=== PATIENT | male | born 1995 | race Caucasian/White ===

== ENCOUNTER → 2016-10-03 | Outpatient (REF) | payer OTHER | LOC: M LAB REF 16:18 | PROVIDERS: ATTEND Physician Assistant | DX: L02.211 Cutaneous abscess of abdominal wall (principal) ==

== ENCOUNTER → 2016-11-17 | Outpatient (REF) | payer OTHER | LOC: M LAB REF 12:04 | PROVIDERS: ATTEND Physician Assistant | DX: L02.211 Cutaneous abscess of abdominal wall (principal) ==

== ENCOUNTER → 2017-02-15 | Outpatient (CLI) | payer OTHER ==
--- NOTE | 2017-02-15 17:43 | REP ---
LEFT KNEE, FIVE VIEWS: HISTORY: Injury. There is no acute fracture or dislocation. The joint spaces are normal in appearance. IMPRESSION: There is no acute fracture or dislocation. Signed by Jignesh Melendez MD 02/15/2017 05:47 P
== END ==
LOC: M WUC 17:21
PROVIDERS: ATTEND Physician Assistant
DX: S80.02XA Contusion of left knee, initial encounter (principal); X58.XXXA Exposure to other specified factors, initial encounter; Y92.89 Other specified places as the place of occurrence of the external cause; Y99.9 Unspecified external cause status

== ENCOUNTER → 2017-07-05 | Outpatient (CLI) | payer OTHER ==
--- NOTE | 2017-07-05 14:57 | REP ---
Right shoulder series: Three views. History: Pain. Findings: The right glenohumeral and acromioclavicular joints are normally aligned. Periarticular soft tissues are unremarkable. No erosive changes seen. Impression: Negative right shoulder radiographs. Signed by Siddhartha Perea MD 07/05/2017 03:18 P
== END ==
LOC: M WUC 12:29
PROVIDERS: ATTEND Physician Assistant
DX: M25.519 Pain in unspecified shoulder (principal)

== ENCOUNTER → 2017-07-18 | Outpatient (CLI) | payer OTHER ==
[~2017-07-18] MED LIST: CONRAY-43 43% 50ML VIAL (Q9960) As Ordered ONE; PROHANCE 279.3MG/ML 5ML VIAL (A9576) As Ordered ONE
--- NOTE | 2017-07-18 13:33 | REP ---
MR arthrography right shoulder: with pre and post intra-articular gadolinium enhanced saline injected imaging: History: Right shoulder dislocation. Right shoulder pain limited range of motion. Comparison radiographs July 05, 2017. Technique: The injection procedure is performed and dictated separately. Pre and post intra-articular gadolinium enhanced saline injected imaging is acquired. Imaging planes include axial, oblique coronal, oblique sagittal and ABER projection images. T1 T2-weighted scans are included with and without fat saturation. MRI findings: Preinjection MR imaging shows normal alignment of the glenohumeral and acromioclavicular joints. There is minimal hypertrophy at the AC joint. There is an area of marrow edema at the posterior aspect of the humeral head above the level of the coracoid. There is a subtle indentation of the cortex here consistent with a very subtle Hill-Sachs impaction fracture deformity. The preinjection imaging also shows a small glenohumeral joint effusion. The anterior labrum is torn and appears displaced and irregular suggesting fragmentation. There is evidence of a cartilaginous wafer shaped loose body in the axillary recess of the glenohumeral articulation. This cartilaginous loose body measures 8 mm x 2 mm x 7 mm. In addition, there is another loose body in the subcoracoid recess. This lens shaped loose body measures 7 x 4 x 10 mm. Oblique coronal images demonstrate fairly extensive swelling and increased signal intensity diffusely in the distal supraspinatus tendon consistent with tendonitis tendinosis change. No focal rotator cuff lesion is seen. No bony glenoid fracture is seen. The infraspinatus, subscapularis, and biceps tendons appear to be intact. Post injection imaging shows good filling and enhancement of the glenohumeral articulation. ABER images confirm the presence of an anterior cartilaginous labral tear. The two loose bodies described above are again seen. There is an articular cartilage linear full-thickness cleft in the anterior labral articular cartilage in addition to the labral cartilage tear described above. In addition, oblique coronal T1-weighted fat sat post injection imaging shows contrast enhancement in a partial-thickness intra substance distal supraspinatus cuff tear at the distal attachment of the supraspinatus tendon. No full-thickness tear seen. No additional finding. Impression: 1. Findings consistent with anterior glenohumeral dislocation with Hill-Sachs impaction fracture/contusion in the humeral head and a displaced fragment anterior cartilaginous labral tear. There is also a linear fissure or fracture in the articular cartilage of the glenoid labrum in addition to the labral cartilage tear. 2. There are two cartilaginous loose bodies visible. 3. 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 4. A small focal partial-thickness distal supraspinatus cuff tear is seen at the distal insertion. Signed by Siddhartha Perea MD 07/18/2017 02:11 P
--- NOTE | 2017-07-20 07:52 | REP ---
Procedure: Right shoulder arthrogram The procedure was performed under the direct supervision of Dr. Perea. History: Right shoulder pain The benefits and risks including but not limited to pain, infection, bleeding and anaphylaxis were explained to the patient and informed consent was obtained. Technique: The right glenohumeral joint space was localized using fluoroscopic guidance. The skin was prepped and draped in a sterile fashion. 1% lidocaine was used as a local anesthetic. Using fluoroscopic guidance a 22 gauge spinal needle was inserted and advanced into the joint. 0.5 ml of Conray 43 was injected to verify placement. 11 ml of a solution containing 20 ml of sterile saline and 0.15 ml of ProHance was injected into the joint. The needle was removed and the patient was taken to MRI for postprocedural imaging. Due to technical error, images were not able to be obtained The the patient tolerated the procedure well and there were no immediate complications. 3 seconds of fluoro time was utilized for this procedure. Reviewed by CHENG Joseph 07/19/2017 02:34 PSigned by Siddhartha Perea MD 07/20/2017 07:43 A
== END ==
LOC: M RADPRO 07:55
PROVIDERS: ATTEND Orthopaedic Surgery
DX: S43.004A Unspecified dislocation of right shoulder joint, initial encounter (principal); S43.431A Superior glenoid labrum lesion of right shoulder, initial encounter; M65.811 Other synovitis and tenosynovitis, right shoulder; X58.XXXA Exposure to other specified factors, initial encounter; Y93.9 Activity, unspecified; Y92.9 Unspecified place or not applicable; Y99.8 Other external cause status
CPT/HCPCS: 23350; 73223; 77002; A9576; Q9960

== ENCOUNTER 2017-08-30 07:53 | Day surgery (SDC) | payer OTHER ==
[~2017-08-30] VITALS: Ht 182.9 cm; Wt 131.5 kg
[2017-08-30] MEDS ORDERED: LIDOCAINE 1% MDV 20ML VIAL SQ PRN (08:00)
[2017-08-30] MEDS ORDERED: D5W/0.2% SODIUM CHLORIDE 1,000 ML IV ONE (08:15)
[2017-08-30] MEDS ORDERED: LR 1,000 ML IV ONE (09:15)
[2017-08-30] MEDS ORDERED: MIDAZOLAM INJ 2 MG/2 ML VIAL (J2250) As Ordered ONE ×2 (09:45→10:41)
[2017-08-30] MEDS ORDERED: fentaNYL 100 MCG/2 ML INJECTION (J3010) As Ordered ONE ×5 (09:46→14:46)
[2017-08-30] MEDS ORDERED: EPINEPHrine 1MG/ML INJ 30ML MD-VIAL As Ordered ONE (09:56)
[2017-08-30] MEDS ORDERED: fentaNYL 100 MCG/2 ML INJECTION (J3010) IV ONE (11:00)
[2017-08-30] MEDS ORDERED: MIDAZOLAM INJ 2 MG/2 ML VIAL (J2250) IV ONE (11:00)
[2017-08-30] MEDS ORDERED: MIDAZOLAM INJ 2 MG/2 ML VIAL (J2250) IV PRN (11:00)
[2017-08-30] MEDS ORDERED: ROCURONIUM BROMIDE 50 MG/5 ML VIAL As Ordered ONE (12:01)
[2017-08-30] MEDS ORDERED: PROPOFOL 200 MG/20 ML VIAL As Ordered ONE (12:01)
[2017-08-30] MEDS ORDERED: dexameTHASONE 4 MG/ML 1ML VIAL (J1100) As Ordered ONE (12:01)
[2017-08-30] MEDS ORDERED: LIDOCAINE 2% INJ 100 MG/5 ML SDV (FOR ANES.) As Ordered ONE (12:01)
[2017-08-30] MEDS ORDERED: KETOROLAC 60 MG/2 ML VIAL (J1885) As Ordered ONE (12:02)
[2017-08-30] MEDS ORDERED: METOCLOPRAMIDE INJ 10MG/2ML VIAL (J2765) As Ordered ONE (12:02)
[2017-08-30] MEDS ORDERED: ONDANSETRON 4MG/2ML VIAL (J2405) As Ordered ONE (12:02)
[2017-08-30] MEDS ORDERED: DESFLURANE 240 ML INHALANT As Ordered ONE (14:50)
[2017-08-30] MEDS ORDERED: ceFAZolin 2 GM/D5W 50 ML IV BAG (J0690 PER 500MG) As Ordered ONE (15:07)
[2017-08-30] MEDS ORDERED: LR 1,000 ML IV SCH ×3 (16:30→16:45)
[2017-08-30] MEDS ORDERED: fentaNYL 100 MCG/2 ML INJECTION (J3010) IV PRN (16:30)
[2017-08-30] MEDS ORDERED: ONDANSETRON 4MG/2ML VIAL (J2405) IV PRN (16:30)
[2017-08-30 18:30] VITALS: BP 133/78
[2017-08-31] MEDS ORDERED: ROPIvacaine 0.5% 30 ML INJECTION (J2795 PER 1MG) ONE (08:12)
--- NOTE | 2017-09-05 17:44 | RO ---
DATE OF PROCEDURE: 08/30/2017 PREPROCEDURE DIAGNOSES: 1. Right shoulder anterior instability. 2. Right shoulder loose bodies. POSTPROCEDURE DIAGNOSES: 1. Right shoulder anterior labral tear. 2. Right shoulder loose bodies with chondral damage to the glenoid. 3. Right shoulder superior labral tear. 4. Partial articular rotator cuff tear. OPERATIVE PROCEDURE: 1. Right shoulder arthroscopy with arthroscopic Bankart repair. 2. Right shoulder open subpectoral biceps tenodesis. 3. Right shoulder loose body removal. 4. Right shoulder chondroplasty of the glenoid and rotator cuff debridement. SURGEON: Albaro Steele MD ELECTRICAL ENGINEER MEP: SHANAE Gomez ANESTHESIA: General with a preoperative nerve block. IV FLUIDS: Lactated Ringers. IMPLANTS: Arthrex 3.0 mm SutureTak times one and 2.9 mm PushLock anchors times three and an Arthrex proximal biceps tenodesis button time one. INDICATIONS: The patient is a 22-year-old gentleman that suffered two instability episodes during basketball where he reported a subluxation that required reduction. Since that injury he had multiple episodes of subluxation as well as mechanical symptoms. On exam, he was noted to have positive apprehension and relocation and tests. MRI arthrogram revealed two loose bodies and a chondral defect to the glenoid near an anterior inferior labral tear. At his young age and having proven recurrent instability and loose bodies, I recommended surgical management. We discussed arthroscopic labral repair, loose body removal, chondroplasty. After a long discussion of the risks and benefits, written informed consent was obtained. DESCRIPTION OF PROCEDURE: The patient was identified in the preoperative holding area and the right shoulder signed by myself. He received a preoperative nerve block. He was then brought to the operating room and placed supine on a well-padded OR table with a beanbag. General anesthesia induced. Examination under anesthesia revealed 170 degrees of passive forward flexion, 90 degrees of external rotation with arm at his side, 100 degrees of external rotation with his arm at 90. He had grade 3 anterior load and shift, grade 1 posterior load and shift. He was then placed into the left side down lateral decubitus position where the beanbag was deflated. Due to the patient's morbid obesity we used extra seat belts and restraints to secure him to the OR table. Due to the patient's large body habitus and morbid obesity it also increased the complexity of the surgery including instrumentation not being long enough and contributing to twice the duration of normal procedure for this type of injury. The right arm was then prepped and draped in a normal sterile fashion using Chloraprep. He received appropriate IV antibiotics within one hour of incision. The right arm was sterilely placed into the Arthrex star sleeve lateral traction device with 10 pounds of traction. Prior to the incision a time-out was performed with myself and all OR staff confirming the patient's name, medical record number, date of and the correct side, site and procedure. The right shoulder was insufflated with 30 mL of lactated ringers. Spinal needle and a standard posterior inferior portal made with an #11 blade. 30 degrees arthroscope introduced into the joint atraumatically. Due to the patient's large size, the arthroscope was just long enough for visualization. A diagnostic arthroscopy revealed tearing of the anterior labrum down to the 5:30 position then extending up across the superior labrum and then back to the 10:30 position. There was a bucket handle tear within the superior labrum and the biceps labral anchor complex appeared unstable most consistent with a modified type 4 superior labral tear. The subscapularis tendon was intact. There was partial articular sided tearing of the supraspinatus and infraspinatus. No full thickness tears. The posterior labrum had a linear crack at the junction of the cartilage and labrum. The humeral head was noted to be sitting anterior and inferior. I then established a low anterior inferior portal using a spinal needle to give appropriate trajectory to drill a low anchor on the glenoid. An accessory anterior superior portal was also created through the rotator interval just anterior to the biceps. We had to use extra long cannulas due to the patient's size. This created difficulty visualizing through the anterior superior portal as the arthroscope was not long enough. On probing of the anterior superior labrum it was deem this to be a modified type 4 superior labral tear with an unstable anchor. There was a bucket handle component and I felt that performing a superior labral repair would lead to a compromised repair at higher risk for retear and also increase the risk of stiffness. I then spoke to the parents to explain the intraoperative findings and obtained written informed consent from both parents to proceed with an open subpectoral biceps tenodesis rather than a superior labral repair. I then performed a tenotomy at the long head of the biceps of the superior labral junction with a meniscal punch. I then proceeded with an open subpectoral biceps tenodesis. A 3 cm incision made just lateral to the axilla centered over the lateral port of the pectoralis major tendon. Dissection with Metzenbaum scissors through the bicipital fascia and then blunt finger dissection down to the anterior humeral cortex. The long head of the biceps tendon was identified and the tendon was easily retrieved with a right angle clamp. Arthrex proximal tenodesis kit was opened and a running locking web stitch was placed with the FiberLoop. Excess tendon was trimmed and discarded. The sutures were loaded through the tenodesis button. I then marked the proposed drill site with cautery 1 cm proximal to the lower edge of the pectoralis major tendon within the bicipital groove and held the sutures to that michaela and that was felt to restore normal tension. Unicortical drill hole made with a [place] Tip drill bit. Irrigation to remove bony debris. The button then was placed through the drill hole on its in classroom tutor and then removed and the sutures were toggled which flipped the button. Unfortunately one of these suture limbs broke so there was one limb of suture through the button, but by pulling traction on that the tendon was reduced nicely to the anterior humeral cortex. I placed a FiberLink suture through the tendon and tied that to the torn loose suture so that the not lose intramedullary control of the button. By pulling on the intact end of the suture this nicely reduced the long head of the biceps to the humerus and then tied knots by hand with the FiberLink which locked the construct in place. Excess suture was trimmed and discarded. The biceps was noted to be under appropriate but not excessive tension. That incision was then extensively irrigated with normal saline, closed with #2-0 Vicryl and a running nylon. Attention was then turned back to the anterior labral tear. Two loose bodies were encountered and they were in the anterior pouch and they were removed with a grasper. The largest was 1 x 1 cm. The chondral defect in the anterior inferior glenoid was smaller than expected and would be covered by a standard anterior labral repair without having to excessively advance the labrum up onto the glenoid face. I did perform a chondroplasty with the shaver to remove any loose flaps of cartilage and then use the shaver on the bur setting to gently decorticate the anterior glenoid neck to create a bony bleeding surface. The drill sleeve for Arthrex SutureTak was placed at the 5-o'clock position and I then drilled and placed a 3.0 SutureTak. Due to the patient's body habitus, it was difficult using the SutureLasso to grasp the anterior band of the inferior glenohumeral ligament. Therefore I used the Arthrex shoulder Scorpion to pass to limbs of FiberWire suture through that 5:30 labral tissue and capsule tissue. Two limbs were passed in a horizontal mattress fashion and then tied arthroscopic knots using half hitches. The excess suture limb was unloaded from the anchor and discarded. This nicely advanced the anterior band of the inferior glenohumeral ligament up to that 5-o'clock anchor. I then used the SutureLasso to grasp capsule and labrum and performed an inferior to superior shift in the capsule. I placed a total of three PushLock anchors, one at 4-o'clock, then 3-o'clock and finally 2-o'clock position on the glenoid using labral tape. This nicely repaired the anterior labrum. The humeral head was then noted when viewed from the superior portal to be centrally located on the glenoid. I did debride the superior labrum with a shaver. I also debrided the partial rotator cuff tear with the shaver. That partial cuff tear was estimated to be one-third or less as the probe tip was just barely buried. The shoulder was then irrigated and drained. Portals closed with nylon suture. Bulky sterile bandage applied and the patient was placed carefully into a ARC 2.0 pillow. COUNTS: All counts correct times two. DISPOSITION: The patient was extubated and transferred to the PACU in stable condition.
== END 2017-08-30 18:40 | disposition home or self-care (01) ==
LOC: M SDC 07:53
PROVIDERS: ATTEND Orthopaedic Surgery
DX: S43.491A Other sprain of right shoulder joint, initial encounter (principal); M24.011 Loose body in right shoulder; M75.111 Incomplete rotator cuff tear or rupture of right shoulder, not specified as traumatic; K21.9 Gastro-esophageal reflux disease without esophagitis; J45.909 Unspecified asthma, uncomplicated; L02.92 Furuncle, unspecified; Z88.1 Allergy status to other antibiotic agents; Z72.0 Tobacco use; X50.0XXA Overexertion from strenuous movement or load, initial encounter; Y93.67 Activity, basketball; Y92.89 Other specified places as the place of occurrence of the external cause; Y99.8 Other external cause status
CPT/HCPCS: 23430; 29806; 29822; 88304; C1713; J0690; J1100; J1885; J2250; J2405; J2765; J3010

== ENCOUNTER → 2018-02-11 | Outpatient (CLI) | payer OTHER | LOC: M WUC 15:26 | DX: S93.402A Sprain of unspecified ligament of left ankle, initial encounter (principal); X58.XXXA Exposure to other specified factors, initial encounter; Y92.89 Other specified places as the place of occurrence of the external cause | CPT/HCPCS: 73610 ==

== ENCOUNTER → 2018-06-24 | Outpatient (CLI) | payer OTHER | LOC: M WUC 15:47 | DX: M79.641 Pain in right hand (principal) | CPT/HCPCS: 73130 ==

== ENCOUNTER → 2019-09-26 | Outpatient (CLI) | payer OTHER ==
[2019-09-26 21:01] LABS: FREE THYROXINE INDEX 2.4 % (1.4-3.8); THYROID STIMULATING HORMONE 2.47 uIU/ML (0.358-3.740); THYROXINE (T4) 7.6 UG/DL (4.5-12.0)
== END ==
LOC: M WUC 18:31
PROVIDERS: ATTEND Physician Assistant Medical
DX: R94.6 Abnormal results of thyroid function studies (principal)

== ENCOUNTER → 2020-08-04 | Outpatient (CLI) | payer OTHER ==
[2020-08-04 11:28] LABS: ALT/SGPT 44 U/L (12-78); BILIRUBIN,TOTAL 0.8 MG/DL (0.2-1.0); BLOOD UREA NITROGEN 11 MG/DL (7-18); CALCIUM LEVEL 9.2 MG/DL (8.5-10.1); CARBON DIOXIDE LEVEL 31 MEQ/L (21-32); CHLORIDE LEVEL 107 MEQ/L (98-107); CHOLESTEROL LEVEL 235 MG/DL (<200); CHOLESTEROL RISK RATIO 6.351 (<5); FREE T4 0.96 NG/DL (0.76-1.46); GLOMERULAR FILTRATION RATE > 60.0 (>60); GLUCOSE, FASTING 84 MG/DL (70-100); HDL CHOLESTEROL 37 MG/DL (>40); LDL CHOLESTEROL 168 MG/DL (<100); NON-HDL-C 198 MG/DL; POTASSIUM SERUM 4.8 MEQ/L (3.5-5.1); SODIUM LEVEL 140 MEQ/L (136-145); TOTAL PROTEIN 7.6 GM/DL (6.4-8.2); TRIGLYCERIDES LEVEL 149 MG/DL (<150)
[2020-08-04 11:31] LABS: CORTISOL AM 9.9 UG/DL (4.3-22.4)
== END ==
LOC: M WUC 08:32
PROVIDERS: ATTEND Nurse Practitioner Family
DX: E66.01 Morbid (severe) obesity due to excess calories (principal)

== ENCOUNTER 2020-10-25 10:22 | Emergency (ER) | payer OTHER ==
[~2020-10-25] VITALS: Ht 182.9 cm; Wt 139.9 kg
[2020-10-25] MEDS ORDERED: FLUORESCEIN OPHTH 1 MG STRIP OD ONE (11:15)
[2020-10-25] MEDS ORDERED: PROPARACAINE 0.5% OPHTH SOL 15ML OD ONE (11:15)
[2020-10-25] MEDS ORDERED: OCUF0.25 OP (12:43)
[2020-10-25] MEDS ORDERED: BESI0.6S OP (12:46)
[2020-10-25 12:53] VITALS: BP 145/89
== END 2020-10-25 12:55 | disposition home or self-care (01) ==
LOC: M ED 10:22
DX: S05.11XA Contusion of eyeball and orbital tissues, right eye, initial encounter (principal); W22.8XXA Striking against or struck by other objects, initial encounter; Y92.018 Other place in single-family (private) house as the place of occurrence of the external cause; Y93.B9 Activity, other involving muscle strengthening exercises; Z88.0 Allergy status to penicillin; Z88.8 Allergy status to other drugs, medicaments and biological substances

== ENCOUNTER 2020-10-31 18:24 | Emergency (ER) | payer OTHER ==
[~2020-10-31] VITALS: Ht 195.6 cm; Wt 144.6 kg
[~2020-10-31 18:24] MED LIST changes: +BESI0.6S OP; -CONRAY-43 43% 50ML VIAL (Q9960) As Ordered ONE; +OCUF0.25 OP; -PROHANCE 279.3MG/ML 5ML VIAL (A9576) As Ordered ONE
--- OUTSIDE RECORDS SUMMARY | 2020-10-31 18:30 | CCD | Continuity of Care Document ---
Author Author Anderson POOL TECHNICAL EDITOR Organization Unknown Address [address] [address] Phone [phone] Care Team Providers Care Machine Setup Operator Name Role Phone Karen Campbell PA-C AUTM Problems Description No Information Available Social History Type Date Description Comments Sex Unknown Tobacco Use Start: Unknown Never Smoked Cigarettes Smoking Status Reviewed: 07/28/20 Never Smoked Cigarettes ETOH Use Occasionally consumes alcohol Allergies, Adverse Reactions, Alerts Active Allergies Reaction Severity Comments Date Augmentin 07/27/2020 Medications Active Medications SIG Qnty Indications Ordering Provide r Date Conceptionxr [facility]roductive[facility] Formula Tablets 1 po qd Unknown History Medications No Active Medications Unknown - 07/27/2020 Immunizations Description No Information Available Vital Signs Date Vital Result Comment 07/28/2020 9:56am BP Systolic 142 mmHg BP Diastolic 84 mmHg Heart Rate 69 /min Body Temperature 96.8 F Height 71.0 inches 5'11" Weight 316.00 lb BMI (Body Mass Index) 44.1 kg/m2 O2 % BldC Oximetry 97 % Results Test Acquired Date Facility Test Result H/L Range Note Lipid Panel 08/04/2020 [facility] [address] [place] [address] (315)- - Triglycerides Level 149 mg/dL Normal <150 Cholesterol Level 235 mg/dL High <200 HDL Cholesterol 37 mg/dL Low >40 LDL Cholesterol 168 mg/dL High <100 Non-HDL-C 198 mg/dL Normal Cholesterol Risk Ratio 6.351 High <5 Comprehensive Metabolic Profil 08/04/2020 [facility] [address] [place] [address] (315)- - Glucose, Fasting 84 mg/dL Normal 70-100 Blood Urea Nitrogen 11 mg/dL Normal 7-18 Creatinine For GFR 1.00 mg/dL Normal 0.70-1.30 Glomerular Filtration Rate > 60.0 Normal >60 1 Sodium Level 140 mEq/L Normal 136-145 Potassium Serum 4.8 mEq/L Normal 3.5-5.1 Chloride Level 107 mEq/L Normal 98-107 Carbon Dioxide Level 31 mEq/L Normal 21-32 Anion Gap 2 mEq/L Low 8-16 Calcium Level 9.2 mg/dL Normal 8.5-10.1 Ast/Sgot 20 U/L Normal 7-37 Alt/SGPT 44 U/L Normal 12-78 Alkaline Phosphatase 63 U/L Normal 45-117 Bilirubin,Total 0.8 mg/dL Normal 0.2-1.0 Total Protein 7.6 GM/DL Normal 6.4-8.2 Albumin 4.0 GM/DL Normal 3.2-5.2 Albumin/Globulin Ratio 1.1 Normal FT4&TSH Panel 08/04/2020 [facility] [address] [place] [address] (315)- - Thyroid Stimulating Hormone 1.810 uIU/ML Normal 0.358- 3.740 Free T4 0.96 ng/dL Normal 0.76-1.46 Laboratory test finding 08/04/2020 [facility] [address] [place] [address] (315)- - Cortisol Am 9.9 g/dL Normal 4.3-22.4 1 Units are mL/min/1.73 m2 Chronic Kidney Disease Staging per NKF: Stage I & II GFR >=60 Normal to Mildly Decreased Stage III GFR 30-59 Moderately Decreased Stage IV GFR 15-29 Severely Decreased Stage V GFR <15 Very Little GFR Left ESRD GFR <15 on QUARTER SUPERVISOR Procedures Description No Information Available Medical Devices Description No Information Available Encounters Type Date Location Provider Dx Diagnosis Office Visit 07/28/2020 10:00a DR. Natalya Pool NP E6 6.01 Morbid (severe) obesity due to excess calories Assessments Date Code Description Provider 07/28/2020 E66.01 Morbid (severe) obesity due to e xcess calories Vita Pool NP Plan of Treatment Future Appointment(s):* 08/18/2020 8:30 am - Vita Pool NP at DR. Natalya Finnegan 07/28/2020 - Vita Pool NP* E66.01 Morbid (severe) obesity due to excess calories* Comments:* Pt here for evaluation of obesity. Pt states has always been big. Was seen by an pantograph transferrer at age 6yo. Had been on diet and exercise program through [facility]. Lowest adult weight 265lbs in 2017Has been on Keto diet for last week. Usually exercises 6 times per week. FH of Diabetes Has never tried any medications for weight loss. Labs done 09/26/2019- TSH= 2.470, T4= 7.6No recent labs. Last lipid panel 2010Will check TSH, FT4, Lipid panel, CMP, Cortisol - if normal consider Phentermine or Saxenda. Pt agrees with planRTO 3 weeks to discuss * Follow up:* RTO 3 weeks. ARIELLE Functional Status Description No Information Available Mental Status Description No Information Available Referrals Description No Information Available
--- OUTSIDE RECORDS SUMMARY | 2020-10-31 18:30 | CCD | Continuity of Care Document ---
Author Author Anderson POOL HEEL SCOURER Organization Unknown Address [address] [place] [address] Phone [phone] Care Team Providers [facility] Name Role Phone Karen Campbell PA-C AUTM Problems Description No Information Available Social History Type Date Description Comments Sex Unknown Tobacco Use Start: Unknown Never Smoked Cigarettes Smoking Status Reviewed: 10/19/20 Never Smoked Cigarettes ETOH Use Occasionally consumes alcohol Allergies, Adverse Reactions, Alerts Active Allergies Reaction Severity Comments Date Augmentin 07/27/2020 Medications Active Medications SIG Qnty Indications Ordering Provide r Date Abouttime [place] 31G X 5/16" 31G X 8 mm Misc use as directed once daily with saxenda 100units J magdaleno Pool NP 08/31/2020 Saxenda 18mg/3ML Solution Pen-Inje ct 3mg sq daily 15ml E66.01 Vita Pool NP 08/18/2020 Conceptionxr [facility]roductivehealth Formula Tablets 1 po bid Unknown History Medications No Active Medications Unknown - 07/27/2020 Immunizations Description No Information Available Vital Signs Date Vital Result Comment 10/19/2020 8:32am BP Systolic 128 mmHg BP Diastolic 82 mmHg Heart Rate 58 /min Body Temperature 97.1 F Height 71.0 inches 5'11" Weight 311.25 lb BMI (Body Mass Index) 43.4 kg/m2 O2 % BldC Oximetry 96 % 08/18/2020 8:22am BP Systolic 136 mmHg BP Diastolic 80 mmHg Heart Rate 75 /min Body Temperature 96.2 F Height 71.0 inches 5'11" Weight 317.12 lb BMI (Body Mass Index) 44.2 kg/m2 O2 % BldC Oximetry 96 % Results Test Acquired Date Facility Test Result H/L Range Note Lipid Panel 08/04/2020 [facility] n[facility] [address] [place] [address] (315)- - Triglycerides Level 149 mg/dL Normal <150 Cholesterol Level 235 mg/dL High <200 HDL Cholesterol 37 mg/dL Low >40 LDL Cholesterol 168 mg/dL High <100 Non-HDL-C 198 mg/dL Normal Cholesterol Risk Ratio 6.351 High <5 Comprehensive Metabolic Profil 08/04/2020 [facility] [address] [place] [address] (315)- - Glucose, Fasting 84 mg/dL Normal [...] Albumin/Globulin Ratio 1.1 Normal FT4&TSH Panel 08/04/2020 [facility] [address] [place] [address] (315)- - Thyroid Stimulating Hormone 1.810 uIU/ML Normal 0.358- 3.740 Free T4 0.96 ng/dL Normal 0.76-1.46 Laboratory test finding 08/04/2020 [facility] [address] [place] [address] (315)- - Cortisol Am 9.9 g/dL Normal 4.3-22.4 1 Units are mL/min/1.73 m2 Chronic Kidney Disease Staging per NKF: Stage I & II GFR >=60 Normal to Mildly Decreased Stage III GFR 30-59 Moderately Decreased Stage IV GFR 15-29 Severely Decreased Stage V GFR <15 Very Little GFR Left ESRD GFR <15 on SUTURE WINDER HAND Procedures Description No Information Available Medical Devices Description No Information Available Encounters Type Date Location Provider Dx Diagnosis Office Visit 10/19/2020 8:30a DR. Natalya Pool, VENESSA E6 6.01 Morbid (severe) obesity due to excess calories E78.2 Mixed hyperlipidemia Office Visit 08/18/2020 8:30a DR. Natalya Pool, VENESSA E6 6.01 Morbid (severe) obesity due to excess calories E78.2 Mixed hyperlipidemia Office Visit 07/28/2020 10:00a DR. Natalya Pool, VENESSA E6 6.01 Morbid (severe) obesity due to excess calories Assessments Date Code Description Provider 10/19/2020 E66.01 Morbid (severe) obesity due to e xcess calories Vita Pool, VENESSA 10/19/2020 E78.2 Mixed hyperlipidemia Vita varela, HEEL SCOURER 08/18/2020 E66.01 Morbid (severe) obesity due to e xcess calories Vita Pool, VENESSA 08/18/2020 E78.2 Mixed hyperlipidemia Vita Romero C avery, HEEL SCOURER 07/28/2020 E66.01 Morbid (severe) obesity due to e xcess calories Vita Pool NP Plan of Treatment 10/19/2020 - Vita Pool NP* E66.01 Morbid (severe) obesity due to excess calories* Comments:* Pt here for evaluation of obesity. Pt states has always been big. Was seen by an configuration management administrator at age 6yo. Had been on diet and exercise program through [facility]. Lowest adult weight 265lbs in 2017Has been on Keto diet Usually exercises 6 times per week. FH of Diabetes Has never tried any medications for weight loss. Labs done 09/26/2019- TSH= 2.470, T4= 7.6No recent labs. Last lipid panel 2011Labs done 08/04/2020- TSH=1.81, FT4=0.96, chol= 235, Trig= 149, HDL= 37, LDL= 168, Cortisol= 9.9, Scr= 1.00, GFR= >60, AST/ALT= 20/44Saxenda discussed- pt would benefit from weight loss( BMI= 44) FH Diabetes, impaired glucose tolerance. . Has lost 6 lbs since last visit. Pt's goal is 285lbs. Has started to workup with weights more. Currently on Saxenda 3mg qdAt first was nauseated, but now tolerating. Will continue same. * Follow up:* RTO 3 months ARIELLE * E78.2 Mixed hyperlipidemia* New Labs:* Lipid Panel, Scheduled: 01/11/21 * Comprehensive Metabolic Profil, Scheduled: 01/11/21 * Comments:* 08/04/2020- chol= 235, Trig= 149, HDL= 37, LDL= 168 Will recheck Lipid panel and CMP prior to next appt Functional Status Description No Information Available Mental Status Description No Information Available Referrals Description No Information Available
--- OUTSIDE RECORDS SUMMARY | 2020-10-31 18:30 | CCD ---
Author Author [facility] Organization [facility] Address Unknown Phone Unavailable Care Team Providers Care Bar Staff Name Role Phone Adrian Stark Karen PA-C Unavailable Unavailabl e Petrancosta, Stark Karen PA-C Unavailable Unavailabl e Petrancosta, Stark Karen PA-C Unavailable Unavailabl e Petrancosta, Stark Karen PA-C Unavailable Unavailabl e Petrancosta, Stark Karen PA-C Unavailable Unavailabl e Petrancosta, Stark Karen PA-C Unavailable Unavailabl e Petrancosta, Stark Karen PA-C Unavailable Unavailabl e Petrancosta, Stark Karen PA-C Unavailable Unavailabl e Petrancosta, Stark Karen PA-C Unavailable Unavailabl e Petrancosta, Stark Karen PA-C Unavailable Unavailabl e Petrancosta, Stark Karen PA-C Unavailable Unavailabl e Petrancosta, Stark Karen PA-C Unavailable Unavailabl e Petrancosta, Stark Karen PA-C Unavailable Unavailabl e Petrancosta, Stark Karen PA-C Unavailable Unavailabl e Petrancosta, Stark Karen PA-C Unavailable Unavailabl e Petrancosta, Stark Karen PA-C Unavailable Unavailabl e Petrancosta, Stark Karen PA-C Unavailable Unavailabl e Petrancosta, Stark Karen PA-C Unavailable Unavailabl e Petrancosta, Stark Karen PA-C Unavailable Unavailabl e Petrancosta, Stark Karen PA-C Unavailable Unavailabl e Petrancosta, Stark Karen PA-C Unavailable Unavailabl e Petrancosta, Stark Karen PA-C Unavailable Unavailabl e Petrancosta, Stark Karen PA-C Unavailable Unavailabl e COOK, B ROBBIE WORLD TRAVEL COUNSELOR Unavailable Unavailable COOK, B ROBBIE WORLD TRAVEL COUNSELOR Unavailable Unavailable COOK, B ROBBIE WORLD TRAVEL COUNSELOR Unavailable Unavailable COOK, B ROBBIE WORLD TRAVEL COUNSELOR Unavailable Unavailable COOK, B ROBBIE WORLD TRAVEL COUNSELOR Unavailable Unavailable COOK, B ROBBIE WORLD TRAVEL COUNSELOR Unavailable Unavailable COOK, B ROBBIE WORLD TRAVEL COUNSELOR Unavailable Unavailable COOK, B ROBBIE WORLD TRAVEL COUNSELOR Unavailable Unavailable COOK, B ROBBIE WORLD TRAVEL COUNSELOR Unavailable Unavailable COOK, B ROBBIE WORLD TRAVEL COUNSELOR Unavailable Unavailable COOK, B ROBBIE WORLD TRAVEL COUNSELOR Unavailable Unavailable COOK, B ROBBIE WORLD TRAVEL COUNSELOR Unavailable Unavailable COOK, B ROBBIE WORLD TRAVEL COUNSELOR Unavailable Unavailable COOK, B ROBBIE WORLD TRAVEL COUNSELOR Unavailable Unavailable COOK, B ROBBIE WORLD TRAVEL COUNSELOR Unavailable Unavailable COOK, B ROBBIE WORLD TRAVEL COUNSELOR Unavailable Unavailable COOK, B ROBBIE WORLD TRAVEL COUNSELOR Unavailable Unavailable COOK, B ROBBIE WORLD TRAVEL COUNSELOR Unavailable Unavailable COOK, B ROBBIE WORLD TRAVEL COUNSELOR Unavailable Unavailable COOK, B ROBBIE WORLD TRAVEL COUNSELOR Unavailable Unavailable COOK, B ROBBIE WORLD TRAVEL COUNSELOR Unavailable Unavailable COOK, B ROBBIE WORLD TRAVEL COUNSELOR Unavailable Unavailable COOK, B ROBBIE WORLD TRAVEL COUNSELOR Unavailable Unavailable COOK, B ROBBIE WORLD TRAVEL COUNSELOR Unavailable Unavailable COOK, B ROBBIE WORLD TRAVEL COUNSELOR Unavailable Unavailable COOK, B ROBBIE WORLD TRAVEL COUNSELOR Unavailable Unavailable COOK, B ROBBIE WORLD TRAVEL COUNSELOR Unavailable Unavailable COOK, B ROBBIE WORLD TRAVEL COUNSELOR Unavailable Unavailable COOK, B ROBBIE WORLD TRAVEL COUNSELOR Unavailable Unavailable COOK, B ROBBIE WORLD TRAVEL COUNSELOR Unavailable Unavailable COOK, B ROBBIE WORLD TRAVEL COUNSELOR Unavailable Unavailable COOK, B ROBBIE WORLD TRAVEL COUNSELOR Unavailable Unavailable COOK, B ROBBIE WORLD TRAVEL COUNSELOR Unavailable Unavailable COOK, B ORBBIE WORLD TRAVEL COUNSELOR Unavailable Unavailable COOK, B ROBBIE WORLD TRAVEL COUNSELOR Unavailable Unavailable COOK, B ROBBIE WORLD TRAVEL COUNSELOR Unavailable Unavailable COOK, B ROBBIE WORLD TRAVEL COUNSELOR Unavailable Unavailable COOK, B ROBBIE WORLD TRAVEL COUNSELOR Unavailable Unavailable COOK, B ROBBIE WORLD TRAVEL COUNSELOR Unavailable Unavailable COOK, B ROBBIE WORLD TRAVEL COUNSELOR Unavailable Unavailable COOK, B ROBBIE WORLD TRAVEL COUNSELOR Unavailable Unavailable COOK, B ROBBIE WORLD TRAVEL COUNSELOR Unavailable Unavailable COOK, B ROBBIE WORLD TRAVEL COUNSELOR Unavailable Unavailable COOK, B ROBBIE WORLD TRAVEL COUNSELOR Unavailable Unavailable COOK, B ROBBIE WORLD TRAVEL COUNSELOR Unavailable Unavailable COOK, B ROBBIE WORLD TRAVEL COUNSELOR Unavailable Unavailable COOK, B ROBBIE WORLD TRAVEL COUNSELOR Unavailable Unavailable COOK, B ROBBIE WORLD TRAVEL COUNSELOR Unavailable Unavailable COOK, B ROBBIE WORLD TRAVEL COUNSELOR Unavailable Unavailable COOK, B ROBBIE WORLD TRAVEL COUNSELOR Unavailable Unavailable COOK, B ROBBIE WORLD TRAVEL COUNSELOR Unavailable Unavailable COOK, B ROBBIE WORLD TRAVEL COUNSELOR Unavailable Unavailable COOK, B ROBBIE WORLD TRAVEL COUNSELOR Unavailable Unavailable COOK, B ROBBIE WORLD TRAVEL COUNSELOR Unavailable Unavailable COOK, B ROBBIE WORLD TRAVEL COUNSELOR Unavailable Unavailable COOK, B ROBBIE WORLD TRAVEL COUNSELOR Unavailable Unavailable COOK, B ROBBIE WORLD TRAVEL COUNSELOR Unavailable Unavailable COOK, B ROBBIE WORLD TRAVEL COUNSELOR Unavailable Unavailable COOK, B ROBBIE WORLD TRAVEL COUNSELOR Unavailable Unavailable COOK, B ROBBIE WORLD TRAVEL COUNSELOR Unavailable Unavailable COOK, B ROBBIE WORLD TRAVEL COUNSELOR Unavailable Unavailable COOK, B ROBBIE WORLD TRAVEL COUNSELOR Unavailable Unavailable COOK, B ROBBIE WORLD TRAVEL COUNSELOR Unavailable Unavailable COOK, B ROBBIE WORLD TRAVEL COUNSELOR Unavailable Unavailable Rosalind BROOKSEW DO Unavailable [phone] Rosalind BROOKS BG DO Unavailable [phone] Rosalind BROOKS BG DO Unavailable [phone] Rosalind BROOKS BG DO Unavailable [phone] Rosalind BROOKS BG DO Unavailable [phone] Rosalind BROOKS BG DO Unavailable [phone] Rosalind BROOKS BG DO Unavailable [phone] Rosalind BROOKS BG DO Unavailable [phone] Rosalind BROOKS BG DO Unavailable [phone] Rosalind BROOKS BG DO Unavailable [phone] Rosalind BROOKS BG DO Unavailable [phone] Rosalind BROOKS BG DO Unavailable [phone] Rosalind BROOKS BG DO Unavailable [phone] Rosalind BROOKS BG DO Unavailable [phone] ADDIE, A. BG DO Unavailable [phone] Rosalind BROOKS DO Unavailable [phone] Rosalind BROOKS DO Unavailable [phone] Rosalind BROOKS DO Unavailable [phone] Rosalind BROOKS DO Unavailable [phone] Rosalind BROOKS DO Unavailable [phone] Rosalind BROOKS DO Unavailable [phone] Re-disclosure Warning The records that you are about to access may contain information from federally-assisted alcohol or drug abuse programs. If such information is present, then the following federally mandated warning applies: This information has been disclosed to you from records protected by federal confidentiality rules (42 CFR part 2). The federal rules prohibit you from making any further disclosure of this information unless further disclosure is expressly permitted by the written consent of the person to whom it pertains or as otherwise permitted by 42 CFR part 2. A general authorization for the release of medical or other information is NOT sufficient for this purpose. The Federal rules restrict any use of the information to criminally investigate or prosecute any alcohol or drug abuse patient.The records that you are about to access may contain highly sensitive health information, the redisclosure of which is protected by Article 27-F of the [facility] Public Health law. If you continue you may have access to information: Regarding HIV / AIDS; Provided by facilities licensed or operated by the [facility] Office of Mental Health; or Provided by the [facility] Office for People With Developmental Disabilities. If such information is present, then the following [facility] mandated warning applies: This information has been disclosed to you from confidential records which are protected by state law. State law prohibits you from making any further disclosure of this information without the specific written consent of the person to whom it pertains, or as otherwise permitted by law. Any unauthorized further disclosure in violation of state law may result in a fine or senior care sentence or both. A general authorization for the release of medical or other information is NOT sufficient authorization for further disc losure. Allergies and Adverse Reactions Type Description Substance Reaction Status Data Source(s ) Allergy to substance No Known Allergies No known allergies (situation ) NONA (Darien Love MD [facility]) Family History Family Member Name Family Member Gender Family Member Status Date o f Status Description Data Source(s) Unknown Male Problem [facility] ([facility] ) Unknown Male Problem [facility]) Encounters Encounter Providers Location Date Indications Data Source(s ) Outpatient<td ID="encounterTypeDescripti onID0">EMERGENCY RM [facility]</td><td>Bg Brooks DO</td><td>Darien Mcbride MD [facility]</td><td>10/30/2020</td><td>7:51AM</td><td>9:02AM</td><td><content ID="encounterDiagnosisID0-0">Iritis</content>, <content ID="encounterDiagnosisID0-1">Blepharitis Squamous</content>, <content ID="encounterDiagnosisID0-2">Meibomian Gland Dysfunction of Eyelid</content></td> Attender: BG Arnold MD [facility] 10/30/2020 07:51:00 AM EST - 10/30/2020 09:02:00 AM EST Meibomian Gland Dysfunction of EyelidBlepharitis SquamousIritis NONA (Dairen Love MD [facility]) Meibomian Gland Dysfunction of Eyelid Blepharitis Squamous Iritis OFFICE OUTPATIENT VISIT 15 MINUTES Attender: ROBBIE MAYA NP Phys ical Therapy 10/19/2020 07:30:00 AM EST [facility] ([facility] ) Outpatient Attender: ROBBIE MAYA NP Physical Therapy 08/18/2020 0 7:30:00 AM EST [facility] ([facility] ) Outpatient Attender: ROBBIE MAYA NP Physical Therapy 07/28/2020 0 9:00:00 AM EST [facility] ([facility] ) Outpatient Attender: Karen Campbell PA-C Main Office 09/19/2019 09:15:00 AM EST [facility] ([facility] Medications Medication Brand Name Start Date Product Form Dose Route Admi nistrative Instructions Pharmacy Instructions Status Indications Reaction Description Data Source(s) 3 ML liraglutide 6 MG/ML Pen Injector Anastasia kaylutide -Weight Management 18 MG/3ML Subcutaneous Solution Pen-injector Liraglutide -Weight Management 18 MG/3ML Subcutaneous Solution Pen-injector 10/30/2020 12:00:00 AM EST active 3 ML liraglutide 6 MG/ML Pen Injector FIFI BAKER (Darien Love MD [facility]) Ofloxacin 3 MG/ML Ophthalmic Solution Ofloxacin 0.3% O phthalmic Solution Ofloxacin 0.3% Ophthalmic Solution 10/30/2020 12:00:00 AM EST active ofloxacin 3 MG/ML Ophthalmic Solution FIFI BAKER (Darien Love MD [facility]) Inveltys 1% Ophthalmic Suspension Inveltys 1% Ophthalmic Corie pension 10/30/2020 12:00:00 AM EST active loteprednol etabonate 10 MG/ML Ophthalmic Suspension [Inveltys] NONA (Darien Love MD [facility]) 0.3 % 10/25/2020 12:00:00 AM EST drops 5 INSTILL 2 DROPS IN THE AFFECTED EYE FOUR TIMES A DAY INSTILL 2 DROPS IN THE AFFECTED EYE FOUR TIMES A DAY S OLD: 10/25/2020 [facility] 3 mg/0.5 mL (18 mg/3 mL) 10/19/2020 12:00:00 AM EST pen inje ctor 15 INJECT 3MG UNDER THE SKIN ONCE DAILY MAXIMUM DAILY DOSE = 3MG INJECT 3MG UNDER THE SKIN ONCE DAILY MAXIMUM DAILY DOSE = 3MG SOLD: 10/20/2020 [facility] Abouttime Pen [place] 31G X 5/16" 08/31/2020 12:00:00 AM EST active [facility] ([facility]) 31 gauge x 5/16" 08/31/2020 12:00:00 AM EST needle 90 USE DAILY WITH SAXENDA USE DAILY WITH SAXENDA SOLD: 09/07/2020 [facility] 3 mg/0.5 mL (18 mg/3 mL) 08/19/2020 12:00:00 AM EST pen inje ctor 15 INJECT 3MG UNDER THE SKIN DAILY MAXIMUM DAILY DOSE = 3MG INJECT 3MG UNDER THE SKIN DAILY MAXIMUM DAILY DOSE = 3MG SOLD: 08/26/2020 [facility] 3 ML liraglutide 6 MG/ML Pen Injector [Saxenda] Saxenda 08/18/2020 12:00:00 AM EST SUBCUTANEOUS active MEDE NT ([facility]) No Active Medications 07/27/2020 12:00:00 AM EST completed [facility] ([facility]) 300 mg 10/22/2019 12:00:00 AM EST capsule 20 TAKE ONE CAPSULE BY MOUTH EVERY 12 HOURS FOR 10 DAYS TAKE ONE CAPSULE BY MOUTH EVERY 12 HOURS FOR 10 DAYS S OLD: 10/22/2019 [facility] Insurance Providers Payer name Policy type / Coverage type Policy ID Covered libertarian ID Covered libertarian's relationship to kenny Policy Kenny Plan Information [facility] [id number] [place] [id number] Employers Insurance of Noti Other 0 Self 0 SELF PAY ONLY SP [facility] [id number] FA2 [id number] [employer] (HMO) [id number] Family Dependent [id number] [employer] (HMO) [id number] Family Dependent [id number] [employer] (HMO) [id number] Family Dependent [id number] [employer] (pr) Medigap Part B [id number] Family Dependent [id number] Umr (pr) Commercial [id number] Family Dependent [id number] UMR O [id number] C [id number] [employer] (HMO) [id number] Family Dependent [id number] [employer] (pr) Medigap Part B [id number] Family Dependent [id number] Pupil Benefits (pr) Commercial [id number] Family Dependent [id number] [employer] (pr) Commercial [id number] Family Dependent 8 [id number] [employer] Commercial [id number] Family Dependent [id number] [employer] [id number] FA2 [id number] Pupil Benefits (pr) Commercial [id number] Self [id number] [employer] (pr) Commercial [id number] Family Dependent 8 [id number] [employer] [id number] FA2 [id number] [employer] PPO O [id number] S [id number] [employer] [id number] FA2 [id number] [employer] Commercial Family Dependent [id number] Problems, Conditions, and Diagnoses Code Display Name Description Problem Type Effective Dates Data Source(s) 373.02 Blepharitis Squamous Blepharitis Squamous Problem 10/30/2020 12:00:00 AM EST NONA (Darien Love MD [facility]) 364.01 Iritis Iritis Problem 10/30/2020 12:00:00 AM ES T NONA (Darien Love MD [facility]) [id number] Meibomian gland dysfunction (disorder) M eibomian Gland Dysfunction of Eyelid Problem 10/30/2020 12:00:00 AM EST NONA (Eder Love MD [facility]) Surgeries/Procedures Procedure Description Date Indications Data Source(s) Surgical / procedural history Right Shoulder Surgery 2018 Surgical / procedural history Right Shoulder Surgery 2018 10/30/2020 12:00:00 AM EST NONA (Darien Love MD [facility]) Results ID Date Data Source [id number] 09/21/2020 12:00:00 AM EST [facility] Name Value Range Interpretation Code Description Data Cheryle rce(s) Supporting Document(s) SARS coronavirus 2 [facility] This lab was ordered by [facility] and reported by [facility]. ID Date Data Source [id number] 08/04/2020 08:38:00 AM EST [facility] ([facility]) Name Value Range Interpretation Code Description Data Cheryle rce(s) Supporting Document(s) Cortisol [Mass/volume] in Serum or Plasma --AM peak specimen 9.9 ug/dL 4.3-22.4 [facility] ([facility]) ID Date Data Source [id number] 08/04/2020 08:38:00 AM EST [facility] ([facility]) Name Value Range Interpretation Code Description Data Cheryle rce(s) Supporting Document(s) Free T4 0.96 ng/dL 0.76-1.46 [facility] ([facility]) Thyroid Stimulating Hormone 1.810 uIU/ML 0.358-3.740 [facility] ([facility]) ID Date Data Source [id number] 08/04/2020 08:38:00 AM EST [facility] ([facility]) Name Value Range Interpretation Code Description Data Cheryle rce(s) Supporting Document(s) Blood Urea Nitrogen 11 mg/dL 7-18 [facility] Glucose, Fasting 84 mg/dL 70-100 [facility] ([facility]) Glomerular Filtration Rate Laboratory test result [facility] ([facility]) <content>Units are mL/min/1.73 m2</content>
<content></content>
<content>Chronic Kidney Disease Staging per NKF:</content>
<content></content>
<content>Stage I & II GFR >=60 Normal to Mildly Decreased</content>
<content>Stage III GFR 30- 59 Moderately Decreased</content>
<content>Stage IV GFR 15-29 Severely Decreased</content>
<content>Stage V GFR <15 Very Little GFR Left</content>
<content>ESRD GFR <15 on BRIM FLEXER</content>
<content></content> Sodium Level 140 meq/L 136-145 [facility] ([facility]) Creatinine For GFR 1.00 mg/dL 0.70-1.30 [facility] ([facility]) Potassium Serum 4.8 meq/L 3.5-5.1 [facility] ([facility]) Carbon Dioxide Level 31 meq/L 21-32 [facility] ([facility]) Chloride Level 107 meq/L 98-107 [facility] ([facility]) Calcium Level 9.2 mg/dL 8.5-10.1 [facility] ([facility]) Ast/Sgot 20 U/L 7-37 [facility] ([facility]) Anion Gap 2 meq/L 8-16 [facility] ([facility]) Alkaline Phosphatase 63 U/L 45-117 [facility] ([facility]) Alt/SGPT 44 U/L 12-78 [facility] ([facility]) Bilirubin,Total 0.8 mg/dL 0.2-1.0 [facility] ([facility]) Albumin 4.0 GM/DL 3.2-5.2 [facility] ([facility]) Total Protein 7.6 GM/DL 6.4-8.2 [facility] ([facility]) Albumin/Globulin Ratio 1.1 [facility] ([facility]) ID Date Data Source [id number] 08/04/2020 08:38:00 AM EST [facility] ([facility]) Name Value Range Interpretation Code Description Data Cheryle rce(s) Supporting Document(s) Triglycerides Level 149 mg/dL [facility] ([facility]) Cholesterol Level 235 mg/dL [facility] ([facility]) HDL Cholesterol 37 mg/dL [facility] ([facility] ) Non-HDL-C 198 mg/dL [facility] ([facility]) LDL Cholesterol 168 mg/dL [facility] ([facility] ) Cholesterol Risk Ratio 6.351 [facility] ([facility] ) Procedure Social History Code Duration Value Status Description Data Source(s ) Smoking 10/30/2020 09:02:54 AM EST Never smoked tobacco (mundoi ng) completed Never smoked tobacco (finding) NONA (Darien Love MD [facility]) Smoking 10/19/2020 12:00:00 AM EST Never Smoked Cigarettes com pleted Never Smoked Cigarettes [facility] ([facility] ) Vital Signs ID Date Data Source UNK Name Value Range Interpretation Code Description Data Source(s) Oxygen saturation in Arterial blood by Pulse oximetry 96 % 96 % [facility] ([facility]) Body mass index (BMI) [Ratio] 43.4 kg/m2 43.4 k g/m2 [facility] ([facility]) Body weight 311.25 [lb_av] 311.25 [lb_av] MEDEN T ([facility]) Body height 71.0 [in_i] 71.0 [facility]_i[facility]" Body temperature 97.1 [degF] 97.1 [degF] [facility] Heart rate 58 /min 58 /min [facility] ([facility] ) Diastolic blood pressure 82 mm[Hg] 82 mm[Hg] [facility] ([facility] ) Systolic blood pressure 128 mm[Hg] 128 mm[Hg] M EDENT ([facility] ) Oxygen saturation in Arterial blood by Pulse oximetry 96 % 96 % [facility] ([facility] ) Body mass index (BMI) [Ratio] 44.2 kg/m2 44.2 k g/m2 [facility] ([facility] ) Body weight 317.12 [lb_av] 317.12 [lb_av] MEDEN T ([facility] ) Body height 71.0 [in_i] 71.0 [in_i] [facility] ([facility] 5'11" Body temperature 96.2 [degF] 96.2 [degF] [facility] ([facility] ) Heart rate 75 /min 75 /min [facility] ([facility] ) Diastolic blood pressure 80 mm[Hg] 80 mm[Hg] [facility] ([facility] ) Systolic blood pressure 136 mm[Hg] 136 mm[Hg] M EDENT ([facility] ) Oxygen saturation in Arterial blood by Pulse oximetry 97 % 97 % [facility] ([facility]) Body mass index (BMI) [Ratio] 44.1 kg/m2 44.1 k g/m2 [facility] ([facility] ) Body weight 316.00 [lb_av] 316.00 [lb_av] MEDEN T ([facility] ) Body height 71.0 [in_i] 71.0 [in_i] [facility] ([facility]) 5'11" Body temperature 96.8 [degF] 96.8 [degF] [facility] ([facility] ) Heart rate 69 /min 69 /min [facility] ([facility] ) Diastolic blood pressure 84 mm[Hg] 84 mm[Hg] [facility] ([facility] ) Systolic blood pressure 142 mm[Hg] 142 mm[Hg] M EDENT ([facility] ) Body mass index (BMI) [Ratio] 40.6 kg/m2 40.6 k g/m2 [facility] ([facility] Oxygen saturation in Arterial blood by Pulse oximetry 97 % 97 % [facility] ([facility] Body weight 297.12 [lb_av] 297.12 [lb_av] MEDEN T ([facility] Body height 71.75 [in_i] 71.75 [in_i] [facility] ([facility] 5'11.75" Respiratory rate 16 /min 16 /min [facility] ( [facility] Body temperature 97.7 [degF] 97.7 [degF] [facility] ([facility] Heart rate 66 /min 66 /min [facility] ([facility] Diastolic blood pressure 86 mm[Hg] 86 mm[Hg] [place] ([facility] Systolic blood pressure 132 mm[Hg] 132 mm[Hg] M EDENT ([facility] Patient Treatment Plan of Care Planned Activity Planned Date Details Description Data Source (s) Inveltys 1% Ophthalmic Suspension 10/30/2020 12:00:00 AM [facility] (Darien Love MD [facility])
--- OUTSIDE RECORDS SUMMARY | 2020-10-31 18:30 | CCD | Continuity of Care Document ---
Author Author [facility] [employer] [facility] Organization Unknown Address [address] [address] Phone [phone] Care Team Providers Care Digital Media Manager Name Role Phone Karen Campbell PA-C AUTM [phone] Problems Description No Information Available Social History [...] Result H/L Range Note Lipid Panel 08/04/2020 [facility] [address] [place] [address] (315)- - Triglycerides Level 149 mg/dL Normal <150 Cholesterol Level 235 mg/dL High <200 HDL Cholesterol 37 mg/dL Low >40 LDL Cholesterol 168 mg/dL High <100 Non-HDL-C 198 mg/dL Normal Cholesterol Risk Ratio 6.351 High <5 Comprehensive Metabolic Profil 08/04/2020 [facility] [address] [place] [address] (315)- - Glucose, Fasting 84 mg/dL Normal [...] Albumin/Globulin Ratio 1.1 Normal FT4&TSH Panel 08/04/2020 [facility] [address] [place] [address] (315)- - Thyroid Stimulating Hormone 1.810 uIU/ML Normal 0.358- 3.740 Free T4 0.96 ng/dL Normal 0.76-1.46 Laboratory test finding 08/04/2020 [facility] [address] [place] [address] (315)- - Cortisol Am 9.9 g/dL Normal 4.3-22.4 1 Units are mL/min/1.73 m2 Chronic Kidney Disease Staging per NKF: Stage I & II GFR >=60 Normal to Mildly Decreased Stage III GFR 30-59 Moderately Decreased Stage IV GFR 15-29 Severely Decreased Stage V GFR <15 Very Little GFR Left ESRD GFR <15 on E [employer] Procedures Description No Information Available Medical Devices Description No Information Available Encounters Description No Information Available Assessments Date Code Description Provider 07/28/2020 E66.01 [...] always been big. Was seen by an professional skater at age 6yo. Had been on diet [...]
--- OUTSIDE RECORDS SUMMARY | 2020-10-31 18:30 | CCD ---
Author Author Anderson Mcbride MD [facility] Organization Anderson Mcbride MD [facility] Address [phone] [address] Phone Care Team Providers Care Invoice Coder Name Role Phone Jasbir Brooks DO Unavailable [phone] Reason for Referral No Reason for Referral Recorded Problems Includes: Active, inactive, and resolved Problems All Visits Onset Date - Time Resolved Date - Time Provider Co ndition Status Meibomian Gland Dysfunction of Eyelid 10/30/2020 - 12:00AM Jasbir Brooks DO Active Iritis 10/30/2020 - 12:00AM Jasbir Brooks DO Active Blepharitis Squamous 10/30/2020 - 12:00AM Jasbir ugarte DO Active Plan of Treatment No Plan of Treatment Recorded Assessments Includes: Assessments for all patient encounters Findings Encounter Date Meibomian gland dysfunction right upper eyelid , right lower eyelid, left upper eyelid, left lower eyelid EMERGENCY RM [facility] with Jasbir Brooks DO 10/30/2020 Primary iridocyclitis, right eye , right lower eyelid, left upper eyelid, left lower eyelid EMERGENCY RM [facility]U with Jasbir Brooks DO 10/30/2020 Squamous blepharitis EMERGENCY RM [facility] with Jasbir Reisei n DO 10/30/2020 Instructions Instructions not supported for this document typeNo Instructions Recorded Medical Equipment - Implanted Devices Includes: Current and historical DevicesNo Medical Equipment Recorded Medications Includes: Current and historical Medications Current Medications (continue as prescribed) Liraglutide -Weight Management 18 MG/3ML Subcutaneous Solution Pen-injector 10/30/2020 Provider: Diagnosis: Ofloxacin 0.3% Ophthalmic Solution 10/30/2020 Provi natalia: Diagnosis: Inveltys 1% Ophthalmic Suspension 10/30/2020 Provid er: Jasbir Brooks DO Diagnosis: Primary iridocycliti s, right eye One drop four times a day in the right e ye for 1 week, three times a day for 1 week, twice a day for 1 week, once a day until follow up Medications Administered Includes: Administered Medications in patient's chartNo Administered Medications Recorded Vital Signs Includes: Vital Signs from 10/30/2019 through 10/30/2020No Vital Signs Recorded For Specified Dates Results Includes: Results from 10/30/2019 through 10/30/2020No Results Recorded For Specified Dates History of Present Illness History of Present Illness not supported for this document typeNo History of Present Illness Recorded Social History Description Last Updated Not using alcohol 10/30/2020 Not using drugs 10/30/2020 Smoking status : Never smoker 10/30/2020 Tobacco non-user 10/30/2020 Procedures and Surgical History Surgical History Last Updated Surgical / procedural history Right Shoulder Surgery 2018 10/30/2020 Medical History Includes: Medical History in patient's chart Description Last Updated No reported medical history 10/30/2020 Family History Includes: Family History in patient's chart Description Last Updated Paternal history of hypertension 10/30/2020 Review of Systems Review of Systems not supported for this document typeNo Review of Systems Recorded Mental Status Mental Status not supported for this document type Description Oriented to time, place, and person Functional Status Functional Status not supported for this document typeNo Functional Status Recorded Physical Exam Physical Exam not supported for this document typeNo Physical Exam Recorded Immunizations Includes: Immunizations in patient's chartNo Immunizations Recorded Allergies Includes: Active, inactive, and resolved AllergiesNo Known Allergies Encounters Includes: Encounters from 10/30/2019 through 10/30/2020 Encounter Provider Location Date Check-In Time Check-Out Time D iagnosis EMERGENCY RM [facility] Jasbir Anrold MD [facility] 7:51AM 9:02AM Iritis, Blepharitis Squamous , Meibomian Gland Dysfunction of Eyelid Insurance Includes: Active Insurance Policies Plan Name Member ID Group # Subscriber Relationship Effective Da taiwo 1 - [employer] /PRIOR [employer]HS NEEDED [id number] Eder id Michael Self Advance Directives Includes: Current Advance DirectivesNo Advance Directives Recorded Health Concerns Includes: Active Health ConcernsNo Active Health Concerns Recorded Goals Includes: Active GoalsNo Active Goals Recorded Interventions Includes: Interventions for active GoalsNo Interventions Recorded Evaluations & Outcomes Includes: Evaluations & Outcomes for active GoalsNo Outcomes Recorded
--- OUTSIDE RECORDS SUMMARY | 2020-10-31 18:30 | CCD | Continuity of Care Document ---
Author Author Anderson [employer]OL SAL[employer] Organization Unknown Address [address] [address] Phone [phone] Care Team Providers Care Assignment Desk Assistant Name Role Phone Karen Campbell PA-C AUTM [phone] Problems Description No Information Available Social History Type Date Description Comments Sex Unknown Tobacco Use Start: Unknown Never Smoked Cigarettes Smoking Status Reviewed: 08/18/20 Never Smoked Cigarettes ETOH Use Occasionally consumes alcohol Allergies, Adverse Reactions, Alerts Active Allergies Reaction Severity Comments Date Augmentin 07/27/2020 Medications Active Medications SIG Qnty Indications Ordering Provide r Date Saxenda 18mg/3ML Solution Pen-Inje ct 3mg sq daily 15ml E66.01 Vita Pool NP 08/18/2020 [facility] Formula Tablets 1 po qd Unknown History Medications No Active Medications Unknown - 07/27/2020 Immunizations Description No Information Available Vital Signs Date Vital Result Comment 08/18/2020 8:22am BP Systolic 136 mmHg BP Diastolic 80 mmHg Heart Rate 75 /min Body Temperature 96.2 F Height 71.0 inches 5'11" Weight 317.12 lb BMI (Body Mass Index) 44.2 kg/m2 O2 % BldC Oximetry 96 % 07/28/2020 9:56am BP Systolic 142 mmHg BP Diastolic 84 mmHg Heart Rate 69 /min Body Temperature 96.8 F Height 71.0 inches 5'11" Weight 316.00 lb BMI (Body Mass Index) 44.1 kg/m2 O2 % BldC Oximetry 97 % Results Test Acquired Date Facility Test Result H/L Range Note Lipid Panel 08/04/2020 [facility] [address] [place] [address] [phone] - Triglycerides Level 149 mg/dL Normal <150 Cholesterol Level 235 mg/dL High <200 HDL Cholesterol 37 mg/dL Low >40 LDL Cholesterol 168 mg/dL High <100 Non-HDL-C 198 mg/dL Normal Cholesterol Risk Ratio 6.351 High <5 Comprehensive Metabolic Profil 08/04/2020 [facility] [address] [place] [address] (315)- - Glucose, Fasting 84 mg/dL Normal [...] Albumin/Globulin Ratio 1.1 Normal FT4&TSH Panel 08/04/2020 [facility] [address] [place] [address] (315)- - Thyroid Stimulating Hormone 1.810 uIU/ML Normal 0.358- 3.740 Free T4 0.96 ng/dL Normal 0.76-1.46 Laboratory test finding 08/04/2020 [facility] [address] [place] [address] [phone])- - Cortisol Am 9.9 g/dL Normal 4.3-22.4 1 Units are mL/min/1.73 m2 Chronic Kidney Disease Staging per NKF: Stage I & II GFR >=60 Normal to Mildly Decreased Stage III GFR 30-59 Moderately Decreased Stage IV GFR 15-29 Severely Decreased Stage V GFR <15 Very Little GFR Left ESRD GFR <15 on TECHNOLOGY TRAINER Procedures Description No Information Available Medical Devices Description No Information Available Encounters Type Date Location Provider Dx Diagnosis Office Visit 08/18/2020 8:30a DR. Natalya Pool, SALES PROJECT ENGINEER E6 6.01 Morbid (severe) obesity due to excess calories E78.2 Mixed hyperlipidemia Office Visit 07/28/2020 10:00a DR. Natalya Pool, VENESSA E6 6.01 Morbid (severe) obesity due to excess calories Assessments Date Code Description Provider 08/18/2020 E66.01 Morbid (severe) obesity due to e xcess calories Vita Pool NP 08/18/2020 E78.2 Mixed hyperlipidemia Vita varela NP 07/28/2020 E66.01 Morbid (severe) obesity due to e xcess calories Vita Pool NP Plan of Treatment 08/18/2020 - Vita Pool NP* E66.01 Morbid (severe) obesity due to excess calories* New Medication:* Saxenda 18 mg/3ML - 3mg sq daily * Comments:* Pt here for evaluation of obesity. Pt states has always been big. Was seen by an pin machine tender at age 6yo. Had been on diet [...] Cortisol= 9.9, Scr= 1.00, GFR= >60, AST/ALT= 20/44 Phentermine or Saxenda. * Follow up:* RTO 2 months ARIELLE * E78.2 Mixed hyperlipidemia* Comments:* 08/04/2020- chol= 235, Trig= 149, HDL= 37, LDL= 168 Functional Status Description No Information Available Mental Status Description No Information Available Referrals Description No Information Available
--- OUTSIDE RECORDS SUMMARY | 2020-10-31 18:30 | CCD | Continuity of Care Document ---
Author Author Anderson [employer]OL STRATEGIC SOURCING CONSULTANT Organization Unknown Address [address] [address] Phone [phone] Care Team Providers Care [employer] Developer Name Role Phone Karen Campbell PA-C AUTM [...] Result H/L Range Note Lipid Panel 08/04/2020 [facility] [address] [place] [address] [phone] - Triglycerides Level 149 mg/dL Normal <150 Cholesterol Level 235 mg/dL High <200 HDL Cholesterol 37 mg/dL Low >40 LDL Cholesterol 168 mg/dL High <100 Non-HDL-C 198 mg/dL Normal Cholesterol Risk Ratio 6.351 High <5 Comprehensive Metabolic Profil 08/04/2020 [facility] [address] [place] [address] (315)- - Glucose, Fasting 84 mg/dL Normal [...] Albumin/Globulin Ratio 1.1 Normal FT4&TSH Panel 08/04/2020 [facility] [address] [place] [address] (315)- - Thyroid Stimulating Hormone 1.810 uIU/ML Normal 0.358- 3.740 Free T4 0.96 ng/dL Normal 0.76-1.46 Laboratory test finding 08/04/2020 [facility] [address] [place] [address] (315)- - Cortisol Am 9.9 g/dL Normal 4.3-22.4 1 Units are mL/min/1.73 m2 Chronic Kidney Disease Staging per NKF: Stage I & II GFR >=60 Normal to Mildly Decreased Stage III GFR 30-59 Moderately Decreased Stage IV GFR 15-29 Severely Decreased Stage V GFR <15 Very Little GFR Left ESRD GFR <15 on SHANK ARCHER Procedures Description No Information Available Medical Devices [...] Pool NP Plan of Treatment Future Appointment(s):* 10/19/2020 8:30 am - Vita Pool NP at DR. Natalya Finnegan 08/18/2020 - Vita Pool NP* E66.01 Morbid (severe) obesity due to excess calories* New Medication:* Saxenda 18 mg/3ML - 3mg sq daily * Comments:* Pt here for evaluation of obesity. Pt states has always been big. Was seen by an soaping machine back tender at age 6yo. Had been on diet and exercise program through [employer] living. Lowest adult weight 265lbs in 2017Has been on Keto diet Usually exercises 6 times per week. FH of Diabetes Has never tried any medications for weight loss. Labs done 09/26/2019- TSH= 2.470, T4= 7.6No recent labs. Last lipid panel 2011Labs done 08/04/2020- TSH=1.81, FT4=0.96, chol= 235, Trig= 149, HDL= 37, LDL= 168, Cortisol= 9.9, Scr= 1.00, GFR= >60, AST/ALT= 20/44 Discussed Phentermine or Saxenda- BP slightly elevated today- would be cautious with Phentermine Saxenda discussed- pt would benefit from weight loss( BMI= 44) FH Diabetes, impaired glucose tolerance. . Pt given sample pen of Victoza to start- reviewed side effects. If tolerated and Saxenda approved will switch. RTO 2 months- sooner if needed * Follow up:* RTO 2 months ARIELLE * E78.2 Mixed hyperlipidemia* Comments:* 08/04/2020- chol= 235, Trig= 149, HDL= 37, LDL= 168 Functional Status Description No Information Available Mental Status Description No Information Available Referrals Description No Information Available
[2020-10-31] MEDS ORDERED: SAXE1INJ (18:32)
[2020-10-31] MEDS ORDERED: INVE1SUS (18:32)
--- NOTE | 2020-10-31 19:21 | REPVR ---
PROCEDURE INFORMATION: Exam: CT Head Without Contrast Exam date and time: 10/31/2020 6:55 PM Age: 25 years old Clinical indication: Injury or trauma; Fall; Blunt trauma (contusions or hematomas); Additional info: Fell off tube while sledding TECHNIQUE: Imaging protocol: Computed tomography of the head without contrast. Radiation optimization: All CT scans at this facility use at least one of these dose optimization techniques: automated exposure control; mA and/or kV adjustment per patient size (includes targeted exams where dose is matched to clinical indication); or iterative reconstruction. COMPARISON: No relevant prior studies available. FINDINGS: Brain: Normal. No hemorrhage. Unremarkable white matter. No mass effect. Cerebral ventricles: No ventriculomegaly. Bones/joints: Unremarkable. No acute fracture. Paranasal sinuses: Visualized sinuses are unremarkable. No fluid levels. Mastoid air cells: Visualized mastoid air cells are well aerated. Soft tissues: Unremarkable. IMPRESSION: No acute intracranial abnormality. Electronically signed by: Mikey Piedra On 10/31/2020 19:22:15 PM
--- NOTE | 2020-10-31 19:25 | REPVR ---
PROCEDURE INFORMATION: Exam: CT Cervical Spine Without Contrast Exam date and time: 10/31/2020 6:55 PM Age: 25 years old Clinical indication: Injury or trauma; Fall; Blunt trauma; Additional info: Fell off tube while sledding TECHNIQUE: Imaging protocol: Computed tomography images of the cervical spine without contrast. Radiation optimization: All CT scans at this facility use at least one of these dose optimization techniques: automated exposure control; mA and/or kV adjustment per patient size (includes targeted exams where dose is matched to clinical indication); or iterative reconstruction. COMPARISON: No relevant prior studies available. FINDINGS: Bones/joints: No acute fracture. Normal alignment. Discs/Spinal canal/Neural foramina: Mild bilateral foraminal narrowing at C5. Lungs: Lung apices are normal. Soft tissues: Unremarkable. IMPRESSION: Minimal degenerative spondylosis. Otherwise unremarkable. No acute findings. Electronically signed by: Mikey Piedra On 10/31/2020 19:25:23 PM
--- OUTSIDE RECORDS SUMMARY | 2020-10-31 19:39 | CCD ---
Author Author [facility] Organization [facility] Address Unknown Phone Unavailable Care Team Providers Care Kiss Mixer Name Role Phone Adrian Ashland Karen PA-C Unavailable Unavailabl e Petrancosta, Ashland Karen PA-C Unavailable Unavailabl e Petrancosta, Ashland Karen PA-C Unavailable Unavailabl e Petrancosta, Ashland Karen PA-C Unavailable Unavailabl e Petrancosta, Ashland Karen PA-C Unavailable Unavailabl e Petrancosta, Ashland Karen PA-C Unavailable Unavailabl e Petrancosta, Ashland Karen PA-C Unavailable Unavailabl e Petrancosta, Ashland Karen PA-C Unavailable Unavailabl e Petrancosta, Ashland Karen PA-C Unavailable Unavailabl e Petrancosta, Ashland Karen PA-C Unavailable Unavailabl e Petrancosta, Ashland Karen PA-C Unavailable Unavailabl e Petrancosta, Ashland Karen PA-C Unavailable Unavailabl e Petrancosta, Ashland Karen PA-C Unavailable Unavailabl e Petrancosta, Ashland Karen PA-C Unavailable Unavailabl e Petrancosta, Ashland Karen PA-C Unavailable Unavailabl e Petrancosta, Ashland Karen PA-C Unavailable Unavailabl e Petrancosta, Ashland Karen PA-C Unavailable Unavailabl e Petrancosta, Ashland Karen PA-C Unavailable Unavailabl e Petrancosta, Ashland Karen PA-C Unavailable Unavailabl e Petrancosta, Ashland Karen PA-C Unavailable Unavailabl e Petrancosta, Ashland Karen PA-C Unavailable Unavailabl e Petrancosta, Ashland Karen PA-C Unavailable Unavailabl e Petrancosta, Ashland Karen PA-C Unavailable Unavailabl e COOK, B ROBBIE CRANE MAN Unavailable Unavailable COOK, B ROBBIE CRANE MAN Unavailable Unavailable COOK, B ROBBIE CRANE MAN Unavailable Unavailable COOK, B ROBBIE CRANE MAN Unavailable Unavailable COOK, B ROBBIE CRANE MAN Unavailable Unavailable COOK, B ROBBIE CRANE MAN Unavailable Unavailable COOK, B ROBBIE CRANE MAN Unavailable Unavailable COOK, B ROBBIE CRANE MAN Unavailable Unavailable COOK, B ROBBIE CRANE MAN Unavailable Unavailable COOK, B ROBBIE CRANE MAN Unavailable Unavailable COOK, B ROBBIE CRANE MAN Unavailable Unavailable COOK, B ROBBIE CRANE MAN Unavailable Unavailable COOK, B ROBBIE CRANE MAN Unavailable Unavailable COOK, B ROBBIE CRANE MAN Unavailable Unavailable COOK, B ROBBIE CRANE MAN Unavailable Unavailable COOK, B ROBBIE CRANE MAN Unavailable Unavailable COOK, B ROBBIE CRANE MAN Unavailable Unavailable COOK, B ROBBIE CRANE MAN Unavailable Unavailable COOK, B ROBBIE CRANE MAN Unavailable Unavailable COOK, B ROBBIE CRANE MAN Unavailable Unavailable COOK, B ROBBIE CRANE MAN Unavailable Unavailable COOK, B ROBBIE CRANE MAN Unavailable Unavailable COOK, B ROBBIE CRANE MAN Unavailable Unavailable COOK, B ROBBIE CRANE MAN Unavailable Unavailable COOK, B ROBBIE CRANE MAN Unavailable Unavailable COOK, B ROBBIE CRANE MAN Unavailable Unavailable COOK, B ROBBIE CRANE MAN Unavailable Unavailable COOK, B ROBBIE CRANE MAN Unavailable Unavailable COOK, B ROBBIE CRANE MAN Unavailable Unavailable COOK, B ROBBIE CRANE MAN Unavailable Unavailable COOK, B ROBBIE CRANE MAN Unavailable Unavailable COOK, B ROBBIE CRANE MAN Unavailable Unavailable COOK, B ROBBIE CRANE MAN Unavailable Unavailable COOK, B ROBBIE CRANE MAN Unavailable Unavailable COOK, B ROBBIE CRANE MAN Unavailable Unavailable COOK, B ROBBIE CRANE MAN Unavailable Unavailable COOK, B ROBBIE CRANE MAN Unavailable Unavailable COOK, B ROBBIE CRANE MAN Unavailable Unavailable COOK, B ROBBIE CRANE MAN Unavailable Unavailable COOK, B ROBBIE CRANE MAN Unavailable Unavailable COOK, B ROBBIE CRANE MAN Unavailable Unavailable COOK, B ROBBIE CRANE MAN Unavailable Unavailable COOK, B ROBBIE CRANE MAN Unavailable Unavailable COOK, B ROBBIE CRANE MAN Unavailable Unavailable COOK, B ROBBIE CRANE MAN Unavailable Unavailable COOK, B ROBBIE CRANE MAN Unavailable Unavailable COOK, B ROBBIE CRANE MAN Unavailable Unavailable COOK, B ROBBIE CRANE MAN Unavailable Unavailable COOK, B ROBBIE CRANE MAN Unavailable Unavailable COOK, B ROBBIE CRANE MAN Unavailable Unavailable COOK, B ROBBIE CRANE MAN Unavailable Unavailable COOK, B ROBBIE CRANE MAN Unavailable Unavailable COOK, B ROBBIE CRANE MAN Unavailable Unavailable COOK, B ROBBIE CRANE MAN Unavailable Unavailable COOK, B ROBBIE CRANE MAN Unavailable Unavailable COOK, B ROBBIE CRANE MAN Unavailable Unavailable COOK, B ROBBIE CRANE MAN Unavailable Unavailable COOK, B ROBBIE CRANE MAN Unavailable Unavailable COOK, B ROBBIE CRANE MAN Unavailable Unavailable COOK, B ROBBIE CRANE MAN Unavailable Unavailable COOK, B ROBBIE CRANE MAN Unavailable Unavailable COOK, B ROBBIE CRANE MAN Unavailable Unavailable COOK, B ROBBIE CRANE MAN Unavailable Unavailable COOK, B ROBBIE CRANE MAN Unavailable Unavailable Rosalind BROOKSEW DO Unavailable [phone] ADDIE, A. BG DO Unavailable [phone] Rosalind BROOKS DO Unavailable [phone] Rosalind BROOKS DO Unavailable [phone] Rosalind BROOKS DO Unavailable [phone] Rosalind BROOKS DO Unavailable [phone] Rosalind BROOKS DO Unavailable [phone] Rosalind BROOKS DO Unavailable [phone] Re-disclosure Warning The records that you [...] is protected by Article 27-F of the [facility] Public Health law. If you continue you may have access to information: Regarding HIV / AIDS; Provided by facilities licensed or operated by the [facility] Office of Mental Health; or Provided by the [facility] Office for People With Developmental Disabilities. If such information is present, then the following [facility] mandated warning applies: This information [...] law may result in a fine or chcf sentence or both. A general authorization for the release of medical or other information is NOT sufficient authorization for further disc losure. Allergies and Adverse Reactions Type Description Substance Reaction Status Data Source(s ) Allergy to substance No Known Allergies No known allergies (situation ) NONA (Darien Love MD [facility]) Family History Family Member Name Family Member Gender Family Member Status Date o f Status Description Data Source(s) Unknown Male Problem MEDENT ([facility] ) Unknown Male Problem [facility]) Encounters Encounter Providers Location Date Indications Data Source(s ) Outpatient<td ID="encounterTypeDescripti onID0">EMERGENCY RM [facility]U</td><td>Bg Brooks DO</td><td>Darien Mcbride MD [facility]</td><td>10/30/2020</td><td>7:51AM</td><td>9:02AM</td><td><content ID="encounterDiagnosisID0-0">Iritis</content>, <content ID="encounterDiagnosisID0-1">Blepharitis Squamous</content>, <content ID="encounterDiagnosisID0-2">Meibomian Gland Dysfunction of Eyelid</content></td> Attender: BG Arnold MD [facility] 10/30/2020 07:51:00 AM EST - 10/30/2020 09:02:00 AM EST Meibomian Gland Dysfunction of EyelidBlepharitis SquamousIritis NONA (Darien Love MD [facility]) Meibomian Gland Dysfunction of Eyelid Blepharitis Squamous Iritis OFFICE OUTPATIENT VISIT 15 MINUTES Attender: ROBBIE MAYA NP Phys ical Therapy 10/19/2020 07:30:00 AM EST [facility] ([facility] ) Outpatient Attender: ROBBIE MAYA NP Physical Therapy 08/18/2020 0 7:30:00 AM EST MED[facility] ([facility] ) Outpatient Attender: ROBBIE MAYA NP Physical Therapy 07/28/2020 0 9:00:00 AM EST MEDENT ([facility] ) Outpatient Attender: Karen Campbell PA-C [...] Pen Injector FIFI BAKER (Darien Love MD [facility]) Ofloxacin 3 MG/ML Ophthalmic Solution Ofloxacin 0.3% O phthalmic Solution Ofloxacin 0.3% Ophthalmic Solution 10/30/2020 12:00:00 AM EST active ofloxacin 3 MG/ML Ophthalmic Solution FIFI BAKER (Darien Love MD [facility]) Inveltys 1% Ophthalmic Suspension Inveltys 1% Ophthalmic Corie pension 10/30/2020 12:00:00 AM EST active loteprednol etabonate 10 MG/ML Ophthalmic Suspension [Inveltys] NONA (Darien Love MD [facility]) 0.3 % 10/25/2020 12:00:00 AM EST drops [...] 3MG SOLD: 10/20/2020 [facility] [place] 31G X 5/16" 08/31/2020 12:00:00 AM EST active [facility] ([facility]) 31 gauge x 5/16" 08/31/2020 [...] 12:00:00 AM EST SUBCUTANEOUS active MEDE NT ([facility]) No Active Medications 07/27/2020 12:00:00 AM EST completed [facility] ([facility]) 300 mg 10/22/2019 12:00:00 AM EST capsule 20 TAKE ONE CAPSULE BY MOUTH EVERY 12 HOURS FOR 10 DAYS TAKE ONE CAPSULE BY MOUTH EVERY 12 HOURS FOR 10 DAYS S OLD: 10/22/2019 [facility] Insurance Providers Payer name Policy type / Coverage type Policy ID Covered republican ID Covered republican's relationship to kenny Policy Kenny Plan Information [facility] [id number] WI2 [id number] [employer] [place] Other 0 Self 0 SELF PAY ONLY SP [facility] [id number] FA2 [id number] [employer] (HMO) [id number] Family Dependent [id number] [employer] (HMO) [id number] Family Dependent [id number] [employer] (HMO) [id number] Family Dependent [id number] [employer] (pr) Medigap Part B [id number] Family Dependent [id number] Umr (pr) Commercial [id number] Family Dependent [id number] UMR O [id number] C [id number] [employer] (HMO) [id number] Family Dependent [id number] [employer] (pr) Medigap Part B [id number] Family Dependent [id number] P[employer] Benefits (pr) Commercial [id number] Family Dependent [id number] [employer] (pr) Commercial [id number] Family Dependent [id number] [employer] Commercial [id number] Family Dependent [id number] [employer] [id number] FA2 [id number] Pupil Benefits (pr) Commercial [id number] Self [id number] [employer] (pr) Commercial [id number] Family Dependent 8 [id number] [employer] [id number] FA2 [id number] [employer] PPO O [id number] S [id number] [employer] [id number] FA2 [id number] [employer] Commercial Family Dependent [id number] Problems, Conditions, and Diagnoses Code Display Name Description Problem Type Effective Dates Data Source(s) 373.02 Blepharitis Squamous Blepharitis Squamous Problem 10/30/2020 12:00:00 AM EST NONA (Darien Love MD [facility]) 364.01 Iritis Iritis Problem 10/30/2020 12:00:00 AM ES T NONA (Darien Love MD [facility]) [id number] Meibomian gland dysfunction (disorder) M eibomian Gland Dysfunction of Eyelid Problem 10/30/2020 12:00:00 AM EST NONA (Eder Love MD [facility]) Surgeries/Procedures Procedure Description Date Indications Data Source(s) Surgical / procedural history Right Shoulder Surgery 2018 Surgical / procedural history Right Shoulder Surgery 2018 10/30/2020 12:00:00 AM EST NONA (Darien Love MD [facility]) Results ID Date Data Source [id number] 09/21/2020 12:00:00 AM EST [facility] Name Value Range Interpretation Code Description Data Cheryle rce(s) Supporting Document(s) SARS [facility] 2 [facility] was ordered by [facility] and reported by [facility]. ID Date Data Source [id number] 08/04/2020 08:38:00 AM EST [facility] ([facility]) Name Value Range Interpretation Code Description Data Cheryle rce(s) Supporting Document(s) Cortisol [Mass/volume] in Serum or Plasma --AM peak specimen 9.9 ug/dL 4.3-22.4 [facility] ([facility]) ID Date Data Source [id number] 08/04/2020 08:38:00 AM EST [facility] ([facility]) Name Value Range Interpretation Code Description Data Cheryle rce(s) Supporting Document(s) Free T4 0.96 ng/dL 0.76-1.46 [facility] ([facility]) Thyroid Stimulating Hormone 1.810 uIU/ML 0.358-3.740 [facility] ([facility]) ID Date Data Source [id number] 08/04/2020 08:38:00 AM EST [facility] ([facility]) Name Value Range Interpretation Code Description Data Cheryle rce(s) Supporting Document(s) Blood Urea Nitrogen 11 mg/dL 7-18 [facility] Glucose, Fasting 84 mg/dL 70-100 [facility] ([facility]) Glomerular Filtration Rate Laboratory test result [facility] ([facility]) <content>Units are mL/min/1.73 m2</content>
<content></content>
<content>Chronic Kidney Disease Staging per NKF:</content>
<content></content>
<content>Stage I & II GFR >=60 Normal to Mildly Decreased</content>
<content>Stage III GFR 30- 59 Moderately Decreased</content>
<content>Stage IV GFR 15-29 Severely Decreased</content>
<content>Stage V GFR <15 Very Little GFR Left</content>
<content>ESRD GFR <15 on MVA REACTOR OPERATOR HEAD</content>
<content></content> Sodium Level 140 meq/L 136-145 [facility] ([facility]) Creatinine For GFR 1.00 mg/dL 0.70-1.30 [facility] ([facility]) Potassium Serum 4.8 meq/L 3.5-5.1 [facility] ([facility]) Carbon Dioxide Level 31 meq/L 21-32 [facility] ([facility]) Chloride Level 107 meq/L 98-107 [facility] ([facility]) Calcium Level 9.2 mg/dL 8.5-10.1 [facility] ([facility]) Ast/Sgot 20 U/L 7-37 [facility] ([facility]) Anion Gap 2 meq/L 8-16 [facility] ([facility]) Alkaline Phosphatase 63 U/L 45-117 [facility] ([facility]) Alt/SGPT 44 U/L 12-78 [facility] ([facility]) Bilirubin,Total 0.8 mg/dL 0.2-1.0 [facility] ([facility]) Albumin 4.0 GM/DL 3.2-5.2 [facility] ([facility]) Total Protein 7.6 GM/DL 6.4-8.2 [facility] ([facility]) Albumin/Globulin Ratio 1.1 [facility] ([facility]) ID Date Data Source [id number] 08/04/2020 08:38:00 AM EST [facility] ([facility]) Name Value Range Interpretation Code Description Data Cheryle rce(s) Supporting Document(s) Triglycerides Level 149 mg/dL [facility] ([facility]) Cholesterol Level 235 mg/dL [facility] ([facility]) HDL Cholesterol 37 mg/dL [facility] ([facility] ) Non-HDL-C 198 mg/dL [facility] ([facility]) LDL Cholesterol 168 mg/dL [facility] ([facility] ) Cholesterol Risk Ratio 6.351 [facility] ([facility] ) Procedure Social History Code Duration Value Status Description Data Source(s ) Smoking 10/30/2020 09:02:54 AM EST Never smoked tobacco (mundoi ng) completed Never smoked tobacco (finding) NONA (Darien Love MD [facility]) Smoking 10/19/2020 12:00:00 AM EST Never Smoked Cigarettes com pleted Never Smoked Cigarettes [facility] ([facility] ) Vital Signs ID Date Data Source UNK Name Value Range Interpretation Code Description Data Source(s) Oxygen saturation in Arterial blood by Pulse oximetry 96 % 96 % [facility] ([facility]) Body mass index (BMI) [Ratio] 43.4 kg/m2 43.4 k g/m2 [facility] ([facility]) Body weight 311.25 [lb_av] 311.25 [lb_av] MEDEN T ([facility]) Body height 71.0 [in_i] 71.0 [in_i] [facility]'11" Body temperature 97.1 [degF] 97.1 [degF] [facility] Heart rate 58 /min 58 /min [facility] ([facility] ) Diastolic blood pressure 82 mm[Hg] 82 mm[Hg] [facility] ([facility] ) Systolic blood pressure 128 mm[Hg] 128 mm[Hg] M EDENT ([facility] ) Oxygen saturation in Arterial blood by Pulse oximetry 96 % 96 % [facility] ([facility] ) Body mass index (BMI) [Ratio] 44.2 kg/m2 44.2 k g/m2 [facility] ([facility] ) Body weight 317.12 [lb_av] 317.12 [lb_av] MEDEN T ([facility] ) Body height 71.0 [in_i] 71.0 [in_i] [facility] ([facility]) 5'11" Body temperature 96.2 [degF] 96.2 [degF] [facility] ([facility] ) Heart rate 75 /min 75 /min [facility] ([facility] ) Diastolic blood pressure 80 mm[Hg] 80 mm[Hg] [facility] ([facility] ) Systolic blood pressure 136 mm[Hg] 136 mm[Hg] M EDENT ([facility] ) Oxygen saturation in Arterial blood by Pulse oximetry 97 % 97 % [facility] ([facility]) Body mass index (BMI) [Ratio] 44.1 kg/m2 44.1 k g/m2 [facility] ([facility] ) Body weight 316.00 [lb_av] 316.00 [lb_av] MEDEN T ([facility] ) Body height 71.0 [in_i] 71.0 [in_i] [facility] ([facility]) 5'11" Body temperature 96.8 [degF] 96.8 [degF] [facility] ([facility] ) Heart rate 69 /min 69 /min [facility] ([facility] ) Diastolic blood pressure 84 mm[Hg] 84 mm[Hg] [facility] ([facility] ) Systolic blood pressure 142 mm[Hg] 142 mm[Hg] M EDENT ([facility] ) Body mass index (BMI) [Ratio] [...] Inveltys 1% Ophthalmic Suspension 10/30/2020 12:00:00 AM [facility] (Darien Love MD [facility])
[2020-10-31 19:41] VITALS: BP 143/97
== END 2020-10-31 19:43 | disposition home or self-care (01) ==
LOC: M ED 18:24
DX: S06.0X0A Concussion without loss of consciousness, initial encounter (principal); S16.1XXA Strain of muscle, fascia and tendon at neck level, initial encounter; S00.81XA Abrasion of other part of head, initial encounter; S00.412A Abrasion of left ear, initial encounter; W22.8XXA Striking against or struck by other objects, initial encounter; Y92.830 Public park as the place of occurrence of the external cause; Y93.23 Activity, snow (alpine) (downhill) skiing, snowboarding, sledding, tobogganing and snow tubing; J45.909 Unspecified asthma, uncomplicated; E66.9 Obesity, unspecified; Z88.1 Allergy status to other antibiotic agents

== ENCOUNTER → 2021-01-12 | Outpatient (CLI) | payer OTHER ==
[~2021-01-12] MED LIST changes: +INVE1SUS; +SAXE1INJ
[2021-01-12 12:44] LABS: ALBUMIN 3.9 GM/DL (3.2-5.2); ALT/SGPT 73 U/L (12-78); BILIRUBIN,TOTAL 0.6 MG/DL (0.2-1.0); BLOOD UREA NITROGEN 10 MG/DL (7-18); CARBON DIOXIDE LEVEL 31 MEQ/L (21-32); CHLORIDE LEVEL 105 MEQ/L (98-107); CHOLESTEROL LEVEL 287 MG/DL (<200); CHOLESTEROL RISK RATIO 8.968 (<5); CREATININE FOR GFR 1.06 MG/DL (0.70-1.30); GLOMERULAR FILTRATION RATE > 60.0 (>60); GLUCOSE, FASTING 73 MG/DL (70-100); HDL CHOLESTEROL 32 MG/DL (>40); LDL CHOLESTEROL 219 MG/DL (<100); NON-HDL-C 255 MG/DL; POTASSIUM SERUM 4.2 MEQ/L (3.5-5.1); SODIUM LEVEL 140 MEQ/L (136-145); TOTAL PROTEIN 7.7 GM/DL (6.4-8.2); TRIGLYCERIDES LEVEL 182 MG/DL (<150)
== END ==
LOC: M WUC 10:04
PROVIDERS: ATTEND Nurse Practitioner Family
DX: E78.2 Mixed hyperlipidemia (principal)

== ENCOUNTER → 2021-05-26 | Outpatient (CLI) | payer OTHER ==
[2021-05-26 12:36] LABS: BLOOD UREA NITROGEN 10 MG/DL (7-18); CALCIUM LEVEL 8.8 MG/DL (8.5-10.1); CARBON DIOXIDE LEVEL 29 MEQ/L (21-32); CHLORIDE LEVEL 105 MEQ/L (98-107); CREATININE FOR GFR 0.96 MG/DL (0.70-1.30); GLOMERULAR FILTRATION RATE > 60.0 (>60); GLUCOSE, FASTING 79 MG/DL (70-100); POTASSIUM SERUM 4.5 MEQ/L (3.5-5.1); SODIUM LEVEL 141 MEQ/L (136-145)
[2021-05-26 12:37] LABS: ALBUMIN 3.7 GM/DL (3.2-5.2); ALT/SGPT 67 U/L (12-78); BILIRUBIN,TOTAL 0.9 MG/DL (0.2-1.0); CHOLESTEROL LEVEL 155 MG/DL (<200); CHOLESTEROL RISK RATIO 4.305 (<5); HDL CHOLESTEROL 36 MG/DL (>40); LDL CHOLESTEROL 87 MG/DL (<100); NON-HDL-C 119 MG/DL; TOTAL PROTEIN 7.3 GM/DL (6.4-8.2); TRIGLYCERIDES LEVEL 158 MG/DL (<150)
== END ==
LOC: M WUC 08:47
PROVIDERS: ATTEND Nurse Practitioner Family
DX: E78.2 Mixed hyperlipidemia (principal)

== ENCOUNTER → 2022-04-18 | Outpatient (CLI) | payer OTHER | LOC: M WUC 09:06 | PROVIDERS: ATTEND Nurse Practitioner Family | DX: M25.571 Pain in right ankle and joints of right foot (principal) ==

== ENCOUNTER → 2024-04-09 | Outpatient (CLI) | payer OTHER ==
[2024-04-09 10:47] LABS: CHOLESTEROL RISK RATIO 4.85 (<5); HDL CHOLESTEROL 34.4 MG/DL (>40); LDL CHOLESTEROL 102.8 MG/DL (<100); NON-HDL-C 132.6 MG/DL
== END ==
LOC: M WUC 09:03
PROVIDERS: ATTEND Registered Nurse
DX: E78.2 Mixed hyperlipidemia (principal)

== ENCOUNTER → 2024-08-22 | Outpatient (CLI) | payer OTHER ==
[2024-08-22 09:34] LABS: ALBUMIN 3.7 G/DL (3.2-5.2); ALKALINE PHOSPHATASE 63 U/L (40-129); ALT/SGPT 54 U/L (7.0-40); AST/SGOT 24 U/L (<34); BILIRUBIN,TOTAL 0.5 MG/DL (0.3-1.2); BLOOD UREA NITROGEN 11 MG/DL (9-23); CALCIUM LEVEL 9.3 MG/DL (8.5-10.1); CARBON DIOXIDE LEVEL 29 MMOL/L (20-31); CHLORIDE LEVEL 108 MMOL/L (98-107); CREATININE FOR GFR 0.86 MG/DL (0.70-1.30); GLOMERULAR FILTRATION RATE > 60.0 (>60); GLUCOSE, FASTING 88 MG/DL (60-100); POTASSIUM SERUM 4.1 MMOL/L (3.5-5.1); SODIUM LEVEL 143 MMOL/L (136-145); TOTAL PROTEIN 7.3 G/DL (5.7-8.2)
[2024-08-22 10:02] LABS: HIV 1&2 SCREEN NEGATIVE (NEGATIVE)
[2024-08-23 13:08] LABS: HEPATITIS B CORE ANTIBODY IGG NON-REACTIVE (NON-REACTIVE)
[2024-08-26 14:31] LABS: QuantiFERON-TB Gold Plus NEGATIVE (NEGATIVE)
== END ==
LOC: M WUC 08:07
PROVIDERS: ATTEND Physician Assistant
DX: Z51.81 Encounter for therapeutic drug level monitoring (principal); Z79.899 Other long term (current) drug therapy

== ENCOUNTER → 2024-09-13 | Outpatient (CLI) | payer OTHER ==
[2024-09-13 11:46] LABS: HEPATITIS B SURFACE ANTIBODY POSITIVE (POSITIVE)
[2024-09-13 11:58] LABS: HEPATITIS B SURFACE ANTIGEN NEGATIVE (NEGATIVE)
[2024-09-13 12:20] LABS: HEPATITIS C VIRUS ABY INDEX 0.07 INDEX (<0.8)
== END ==
LOC: M WUC 08:18
PROVIDERS: ATTEND Physician Assistant
DX: Z79.899 Other long term (current) drug therapy (principal)

== ENCOUNTER → 2024-09-23 | Outpatient (CLI) | payer OTHER ==
[2024-09-23 12:39] LABS: THYROID STIMULATING HORMONE 1.828 uIU/ML (0.55-4.78)
[2024-09-23 12:40] LABS: FREE T4 1.14 NG/DL (0.89-1.76); THYROID PEROXIDASE ANTIBODY < 28.0 U/ML (<60.0)
[2024-09-23 12:41] LABS: HEMOGLOBIN A1c 5.1 % (4.0-6.0)
[2024-09-23 12:42] LABS: BASO % 0.5 % (0.0-1.0); EOS # 0.1 10^3/uL (0.0-0.5); EOS % 1.3 % (0.0-3.0); HEMATOCRIT 48.1 % (42.0-52.0); HEMOGLOBIN 16.4 g/dl (13.5-17.5); LYMPH # 2.5 10^3/uL (1.5-5.0); LYMPH % 40.6 % (24.0-44.0); MEAN CORPUSCULAR HEMOGLOBIN 31.5 pg (27.0-33.0); MEAN CORPUSCULAR HGB CONC 34.1 g/dl (32.0-36.5); MEAN CORPUSCULAR VOLUME 92.3 fl (80.0-96.0); MONO # 0.6 10^3/uL (0.0-0.8); NEUTROPHILS # 2.9 10^3/uL (1.5-8.5); NEUTROPHILS % 47.4 % (36.0-66.0); PLATELET COUNT, AUTOMATED 208 10^3/uL (150-450); RED BLOOD COUNT 5.21 10^6/uL (4.30-6.10); WHITE BLOOD COUNT 6.2 10^3/uL (4.0-10.0)
== END ==
LOC: M WUC 10:08
PROVIDERS: ATTEND Registered Nurse
DX: E66.9 Obesity, unspecified (principal)

== ENCOUNTER → 2025-07-07 | Outpatient (CLI) | payer OTHER ==
[2025-07-07 12:30] LABS: ALT/SGPT 41 U/L (7.0-40); AST/SGOT 26 U/L (<34); CALCIUM LEVEL 9.3 MG/DL (8.5-10.1); CARBON DIOXIDE LEVEL 31 MMOL/L (20-31); CHLORIDE LEVEL 106 MMOL/L (98-107); CHOLESTEROL LEVEL 183 MG/DL (<200); CHOLESTEROL RISK RATIO 4.58 (<5); CREATININE FOR GFR 0.92 MG/DL (0.70-1.30); GLOMERULAR FILTRATION RATE > 90.0 (>60); LDL CHOLESTEROL 125.9 MG/DL (<100); NON-HDL-C 143.1 MG/DL; POTASSIUM SERUM 4.5 MMOL/L (3.5-5.1); SODIUM LEVEL 144 MMOL/L (136-145); TRIGLYCERIDES LEVEL 86 MG/DL (<150)
== END ==
LOC: M WUC 08:51
PROVIDERS: ATTEND Registered Nurse
DX: E78.2 Mixed hyperlipidemia (principal)